=== PATIENT | female | born 1940 | race Caucasian/White ===

== ENCOUNTER → 2017-01-12 | Outpatient (CLI) | payer MEDICARE, OTHER | LOC: OD 11:20 | PROVIDERS: ATTEND Preventive Medicine Undersea and Hyperbaric Medicine | DX: L97.513 Non-pressure chronic ulcer of other part of right foot with necrosis of muscle (principal) ==

== ENCOUNTER 2017-01-26 11:01 | Emergency (ER) | payer MEDICARE, OTHER ==
[2017-01-26] MEDS ORDERED: ACETAMINOPHEN 325 MG TABLET PO ONE (11:32)
[2017-01-26] MEDS ORDERED: ONDANSETRON 4 MG TAB.RAPDIS PO ONE (11:32)
--- NOTE | 2017-01-26 11:35 | ER Document Report ---
ED Medical Screen (RME) - General Stated Complaint: DIZZY, WOUND ON FOOT Mode of Arrival: Wheelchair Information source: Patient Notes: Patient complains of dizziness that started today. Patient is currently being treated for diabetic foot ulcer to right foot. Patient does report nausea and vomiting. hx: Diabetes I have greeted and performed a rapid initial assessment of this patient. A comprehensive ED assessment and evaluation of the patient, analysis of test results and completion of the medical decision making process will be conducted by additional ED providers. TRAVEL OUTSIDE OF THE [place] IN LAST 30 DAYS: No - Related Data Allergies/Adverse Reactions: No Known Allergies Allergy (Unverified 01/26/17 11:30) Physical Exam - Vital signs Vitals: Temp Pulse Resp BP Pulse Ox 100.9 F H 121 H 16 144/59 H 96 01/26/17 11:16 01/26/17 11:16 01/26/17 11:16 01/26/17 11:16 01/26/17 11:16 - Cardiovascular Rhythm: Regular, Tachycardia Heart sounds: S1 appreciated, S2 appreciated Course - Re-evaluation Re-evalutation: 01/26/17 11:34 Patient insistent that no blood will be drawn and no IV access will be placed. Discussed risks with patient, patient advised that there is a concern that she is septic and that this could be potentially life-threatening condition if we do not quickly and treat her appropriately. Patient insistent that no blood will be drawn and that no IV will be placed. Patient spouse with patient with missing the entire encounter and states that patient does not want any needles and that his given her complications with managing her diabetes as well. - Vital Signs Vital signs: Temp Pulse Resp BP Pulse Ox 100.9 F H 121 H 16 144/59 H 96 01/26/17 11:16 01/26/17 11:16 01/26/17 11:16 01/26/17 11:16 01/26/17 11:16
--- NOTE | 2017-01-26 12:39 | ER Document Report ---
ED General - General Chief Complaint: Puncture Wound to Foot Stated Complaint: DIZZY, WOUND ON FOOT Mode of Arrival: Wheelchair Notes: The patient is a 76-year-old female, past medical history 2 months of right foot wound (followed by Wound Care), presents from the wound care center after she was tachycardic and febrile. Patient also had an episode of vomiting, but does not feel nauseous at this time. She was having body aches over the past few days. She is adamantly refusing any blood or IV at this time. She denies chest pain, shortness of breath, cough, abdominal pain, dysuria, increased drainage from her foot wound or rash. TRAVEL OUTSIDE OF THE [place] IN LAST 30 DAYS: No - Related Data Allergies/Adverse Reactions: No Known Allergies Allergy (Unverified 01/26/17 11:30) Past Medical History - General Information source: Patient - Social History Smoking Status: Never Smoker Chew tobacco use (# tins/day): No Frequency of alcohol use: None Drug Abuse: None Family History: Reviewed & Not Pertinent Patient has suicidal ideation: No Patient has homicidal ideation: No Renal/ Medical History: Denies: Hx Peritoneal Dialysis Review of Systems - Review of Systems Notes: REVIEW OF SYSTEMS: CONSTITUTIONAL: +fevers, -chills EENT: -eye pain, -difficulty swallowing, -nasal congestion CARDIOVASCULAR:-chest pain, -syncope. RESPIRATORY: -cough, -SOB GASTROINTESTINAL: -abdominal pain, - nausea, +vomiting, -diarrhea GENITOURINARY: -dysuria, -hematuria MUSCULOSKELETAL: -back pain, -neck pain SKIN: +right foot wound, -rash HEMATOLOGIC: -easy bruising or bleeding. LYMPHATIC: -swollen, enlarged glands. NEUROLOGICAL: -altered mental status or loss of consciousness, -headache, - neurologic symptoms PSYCHIATRIC: -anxiety, -depression. ALL OTHER SYSTEMS REVIEWED AND NEGATIVE. Physical Exam - Vital signs Vitals: Temp Pulse Resp BP Pulse Ox 100.9 F H 121 H 16 144/59 H 96 01/26/17 11:16 01/26/17 11:16 01/26/17 11:16 01/26/17 11:16 01/26/17 11:16 - Notes Notes: PHYSICAL EXAMINATION: GENERAL: Well-appearing, well-nourished and in no acute distress. HEAD: Atraumatic, normocephalic. EYES: Pupils equal round and reactive to light, extraocular movements intact, sclera anicteric, conjunctiva are normal. ENT: nares patent, oropharynx clear without exudates. Moist mucous membranes. NECK: Normal range of motion, supple without lymphadenopathy LUNGS: Breath sounds clear to auscultation bilaterally and equal. No wheezes rales or rhonchi. HEART: Tachycardic, regular rhythm ABDOMEN: Soft, nontender, normoactive bowel sounds. No guarding, no rebound. No masses appreciated. EXTREMITIES: Normal range of motion, no pitting or edema. No cyanosis. NEUROLOGICAL: Cranial nerves grossly intact. Normal speech, normal gait. Normal sensory, motor, and reflex exams. PSYCH: Normal mood, normal affect. SKIN: 2 cm wound at the plantar surface of her right foot without drainage or surrounding erythema Course - Re-evaluation Re-evalutation: Patient is adamantly refusing IV or blood draws at this time. She is AAO3 and competent to make her own decisions. Spoke to her about my concern for sepsis and that if she does not receive IV fluids, Abx or blood, she may have worsening sepsis, disability and even . She is able to verbalize these risks back to me and she still does not want an IV or blood draws. Patient no longer feeling nauseous and abdomen is completely nontender. She is drinking 60 ounces of water in the emergency room. She said she will provide a urine sample and chest x-ray. 01/26/17 15:34 Pt says she feels much better. Urine and chest x-ray did not show any signs of infection. She said that her foot wound looks better than it ever has in the past. Her fever may be from a viral infection, but since she is not allowing blood draws, there is no way of telling if this or something more serious. Repeat abdominal exam is completely nontender. Will have patient leave AMA and have her follow-up with her primary care physician tomorrow. See AMA form for more information. Given strict return precautions and she understands. - Vital Signs Vital signs: Temp Pulse Resp BP Pulse Ox 97.4 F 90 16 113/50 L 97 01/26/17 15:17 01/26/17 15:17 01/26/17 15:17 01/26/17 15:17 03/23/17 15:17 - Laboratory Laboratory results interpreted by me: 01/26/17 14:27 Urine Protein 30 H Urine Glucose (UA) >=500 H Urine Ketones TRACE H Ur Leukocyte Esterase SMALL H - Diagnostic Test Radiology reviewed: Image reviewed, Reports reviewed Radiology results interpreted by me: CXR: NAD - EKG Interpretation by Me EKG shows normal: Sinus rhythm, [place], Intervals, QRS Complexes, ST-T Waves [place]/QRS: LAHB/LAFB Discharge - Discharge Clinical Impression: Nausea Fever Qualifiers: Fever type: unspecified Qualified Code(s): R50.9 - Fever, unspecified Condition: Stable Disposition: AGAINST MEDICAL ADVICE Additional Instructions: Return immediately to the emergency room if you notice any worsening symptoms or if you want further evaluation. Follow up with your primary care physician tomorrow. FEVER: Fever is the body's reaction to infection. Fever can also occur with illnesses that create fever-producing substances in the body. By itself, fever is not harmful. It helps the body fight invading germs. We are more concerned with: (1) What's causing the fever? (2) How can we keep you more comfortable until the fever goes away? Early in an illness, symptoms are often so vague that a diagnosis can't be made. If the doctor hasn't identified a clear cause for your fever, you will probably develop new symptoms within the next two days. Contact the doctor if you develop severe worsening headache, rash, chest pain, cough with yellow or green sputum, difficulty breathing, abdominal pain, or other new symptoms. There is no reason to treat a fever if you're comfortable. If the fever is causing aches, headache, and fatigue, you can treat it with ibuprofen (Advil , Nuprin, etc) or acetaminophen (Tylenol). Follow the directions on the bottle. Get plenty of liquids (three quarts per day). Rest. Physical work or sports will raise the temperature higher and make you feel much worse. Dress lightly. If you're chilling, this means the temperature is trying to go higher. Take ibuprofen or acetaminophen. When you feel sweaty and "feverish" the temperature is coming down. If the fever doesn't go away within two days or if you become more ill, call the doctor or return at once for re-examination. NORMAL EXAM AND WORKUP: At this time, with the exception of fever, your examination and workup show no significant abnormality. No significant abnormal physical findings were noted. All laboratory, EKG, and imaging (x-ray, CT scans, ultrasound) studies that were ordered show no significant abnormality. Although your examination and all studies that were ordered showed no significant abnormal finding, there are no examinations and no studies that are 100% accurate. There is always the possibility that some abnormality could exist and not be detected with physical examination or within the limits and capabilities of laboratory and other studies. You should return or follow up as you were instructed on your visit today for further evaluation if your symptoms do not resolve. VIRAL SYNDROME: The physician has diagnosed a likely viral infection. Viruses not only cause "colds," but can cause many different symptoms including generalized aching, fever, headache, cough, diarrhea, nausea, vomiting, and fatigue. The treatment, for the most part, is simply relief of symptoms. This means that antibiotics are usually not given. Rest, fluids, pain medications and, occasionally, medication for the specific symptoms that are most bothersome will be prescribed. Use good handwashing to avoid passing the virus to others. Shared toys should be cleaned with disinfectant. Clean the toilets, sinks, and counter surfaces in bathrooms. Launder clothing in hot water. Contact the physician if you develop any new or unusual symptoms such as severe headache, stiff neck, high fever, chest pain, productive cough, or shortness of breath. You should be rechecked if you don't see marked improvement within seven to 10 days. USE OF ACETAMINOPHEN (Tylenol): Acetaminophen may be taken for pain relief or fever control. It's much safer than aspirin, offering a wider range of "safe" dosages. It is safe during . Some brand names are Tylenol, Panadol, Datril, Anacin 3, Tempra, and Liquiprin. Acetaminophen can be repeated every four hours. The following are maximum recommended dosages: WEIGHT Dose Drops Elixir Chewable( 80mg) (LBS.) drprs=droppers tsp=teaspoon 6 40 mg 0.4 ml (1/2) 6-11 80 mg 0.8 ml (full) tsp 1 tab 12-16 120 mg 1 1/2 drprs 3/4 tsp 1 1/2 tabs 17-23 160 mg 2 drprs 1 tsp 2 tabs 24-30 240 mg 3 drprs 1 1/2 tsp 3 tabs 30-35 320 mg 2 tsp 4 tabs 36-41 360 mg 2 1/4 tsp 4 1/2 tabs 42-47 400 mg 2 1/2 tsp 5 tabs 48-53 480 mg 3 tsp 6 tabs 54-59 520 mg 3 1/4 tsp 6 1/2 tabs 60-64 560 mg 3 1/2 tsp 7 tabs 65-70 600 mg 3 3/4 tsp 7 1/2 tabs 71-76 640 mg 4 tsp 8 tabs 77-82 720 mg 4 1/2 tsp 9 tabs 83-88 800 mg 5 tsp 10 tabs >89 pounds or adults 650 mg to 900 mg Acetaminophen can be repeated every four hours. Maximum dose not to exceed 4000 mg a day. These maximum recommended dosages are slightly higher than the dosages written on the product container, but these dosages are very safe and below the toxic dosage for acetaminophen. FOLLOW-UP CARE: If you have been referred to a physician for follow-up care, call the physician s office for an appointment as you were instructed or within the next two days. If you experience worsening or a significant change in your symptoms, notify the physician immediately or return to the Emergency Department at any time for re-evaluation.
--- NOTE | 2017-01-26 13:16 | EKG REPORT ---
SEVERITY:- ABNORMAL ECG - SINUS TACHYCARDIA LAD, CONSIDER LEFT ANTERIOR FASCICULAR BLOCK BORDERLINE R WAVE PROGRESSION, ANTERIOR LEADS, CONSIDER OLD ANT. [place] : Confirmed by: Rashid Lopez MD 26-Jan-2017 13:15:16
[2017-01-26 14:46] LABS: APPEARANCE,URINE SLIGHTLY-CLOUDY; BILIRUBIN,URINE NEGATIVE (NEGATIVE); GLUCOSE, URINE >=500 mg/dL (NEGATIVE); KETONES,URINE TRACE mg/dL (NEGATIVE); LEUKOCYTE ESTERASE,URINE SMALL (NEGATIVE); NITRITE,URINE NEGATIVE (NEGATIVE); PROTEIN,URINE 30 mg/dL (NEGATIVE); URINE SPECIFIC GRAVITY 1.027; UROBILINOGEN,URINE NEGATIVE mg/dL (<2.0)
[2017-01-26 15:19] VITALS: BP 113/50
== END 2017-01-26 16:20 | disposition left against medical advice (07) ==
LOC: ER 11:01
DX: R11.0 Nausea (principal); R50.9 Fever, unspecified; R00.0 Tachycardia, unspecified; M79.1 Myalgia; S91.301D Unspecified open wound, right foot, subsequent encounter; X58.XXXD Exposure to other specified factors, subsequent encounter
CPT/HCPCS: 99284; 93005; 87086; 87088; 81001; 71020; 73630; 93010; A9270 ×2; S0119

== ENCOUNTER 2017-01-31 16:15 | Inpatient (IN) | payer MEDICARE, OTHER ==
--- NOTE | 2017-01-31 17:15 | ER Document Report ---
ED Medical Screen (RME) - General Chief Complaint: Foot Pain Stated Complaint: FOOT PAIN Time seen by provider: 17:13 Mode of Arrival: Wheelchair Information source: Patient Notes: 76-year-old female presents to ED for infections to the right plantar surface of the foot. She was sent over by wound clinic due to severe infections to this wound. She stated patient will probably need IV antibiotics. I have greeted and performed a rapid initial assessment of this patient. A comprehensive ED assessment and evaluation of the patient, analysis of test results and completion of medical decision making process will be conducted by an additional ED providers. TRAVEL OUTSIDE OF THE [place] IN LAST 30 DAYS: No - Related Data Allergies/Adverse Reactions: No Known Allergies Allergy (Verified 01/31/17 17:10) Past Medical History - Social History Chew tobacco use (# tins/day): No Frequency of alcohol use: None Drug Abuse: None Endocrine Medical History: Reports: Hx Diabetes Mellitus Type 2 Renal/ Medical History: Denies: Hx Peritoneal Dialysis Past Surgical History: Reports: Hx Gynecologic Surgery - d&c, Hx Orthopedic Surgery - carpel tunnel bilateral, Hx Tonsillectomy - Immunizations Hx Diphtheria, Pertussis, Tetanus Vaccination: No Physical Exam - Vital signs Vitals: Temp Pulse Resp BP Pulse Ox 97.4 F 84 20 106/46 L 98 01/31/17 17:02 01/31/17 17:02 01/31/17 17:02 01/31/17 17:02 01/31/17 17:02 Course - Vital Signs Vital signs: Temp Pulse Resp BP Pulse Ox 97.4 F 84 20 106/46 L 98 01/31/17 17:02 01/31/17 17:02 01/31/17 17:02 01/31/17 17:02 01/31/17 17:02
[2017-01-31 18:10] LABS: HEMATOCRIT 40.5 % (36.0-47.0); HEMOGLOBIN 13.6 g/dL (12.0-15.5); HGB HCT DIFFERENCE 0.3; MEAN CORPUSCULAR HGB CONC 33.6 g/dL (32.0-36.0); MEAN CORPUSCULAR VOLUME 80 fl (80-97); RED BLOOD COUNT 5.04 10^6/uL (3.72-5.28); RED CELL DISTRIBUTION WIDTH 15.6 % (11.5-14.0); WHITE BLOOD COUNT 21.4 10^3/uL (4.0-10.5)
[2017-01-31 18:26] LABS: ALANINE AMINOTRANSFERASE 30 U/L (9-52); ALBUMIN 3.5 g/dL (3.5-5.0); ALKALINE PHOSPHATASE 246 U/L (38-126); ASPARTATE AMINO TRANSFERASE 27 U/L (14-36); BILIRUBIN,DIRECT 0.8 mg/dL (0.0-0.4); BILIRUBIN,TOTAL 1.5 mg/dL (0.2-1.3); BLOOD UREA NITROGEN 37 mg/dL (7-20); CALCIUM 9.6 mg/dL (8.4-10.2); CARBON DIOXIDE 19 mmol/L (22-30); CHLORIDE 92 mmol/L (98-107); CREATININE RESULT 0.81 mg/dL (0.52-1.25); GLUCOSE 180 mg/dL (75-110); POTASSIUM 5.2 mmol/L (3.6-5.0); SODIUM 130.9 mmol/L (137-145); TOTAL PROTEIN 6.3 g/dL (6.3-8.2)
[2017-01-31 18:27] LABS: APPEARANCE,URINE SLIGHTLY-CLOUDY; BILIRUBIN,URINE NEGATIVE (NEGATIVE); GLUCOSE, URINE >=500 mg/dL (NEGATIVE); KETONES,URINE 20 mg/dL (NEGATIVE); LEUKOCYTE ESTERASE,URINE MODERATE (NEGATIVE); NITRITE,URINE NEGATIVE (NEGATIVE); PROTEIN,URINE NEGATIVE (NEGATIVE); UROBILINOGEN,URINE NEGATIVE mg/dL (<2.0)
[2017-01-31 18:27] LABS: ANION GAP 20 (5-19)
[2017-01-31 18:33] LABS: BASOPHILS % (MANUAL) 1 % (0-2); EOSINOPHILS % (MANUAL) 0 % (0-6); LYMPHOCYTES % (MANUAL) 13 % (13-45); TOTAL CELLS COUNTED 100
[2017-01-31 18:35] LABS: ACANTHOCYTES SLIGHT; ANISOCYTOSIS SLIGHT; OVALOCYTES SLIGHT; POIKILOCYTOSIS SLIGHT; POLYCHROMASIA 1+; TEAR DROP CELLS SLIGHT; TOXIC GRANULATION 2+; TOXIC VACUOLATION PRESENT
[2017-01-31 18:36] LABS: PLATELET CLUMPS PRESENT
[2017-01-31] MEDS ORDERED: DIAZEPAM 2 MG TABLET PO ONE ×2 (22:42→23:49)
[2017-01-31] MEDS ORDERED: PIPERACILLIN/TAZOBACTAM 3.375 GM VIAL IV ONE (22:43)
--- NOTE | 2017-01-31 22:53 | ER Document Report ---
ED Extremity Problem, Lower - General Chief Complaint: Foot Pain Stated Complaint: FOOT PAIN Time seen by provider: 22:48 Mode of Arrival: Wheelchair TRAVEL OUTSIDE OF THE [place] IN LAST 30 DAYS: No - HPI Patient complains to provider of: Swelling Location: Foot Occurred: Other - 3 days Onset/Duration: Gradual Quality of pain: Pressure Recent injury: No Exacerbated by: Movement Notes: Patient is a 76-year-old female with a history of diabetes as well as a diabetic ulcer on the right foot, presents to the emergency room complaining of worsening swelling and infection to the right foot over the past 3-4 days, he got an ulceration on the plantar surface the past 6 months, she in seen at the wound care clinic for this and followed, she does note over the past few days her infection has gotten significantly worse, due to diabetic neuropathy she has decreased sensation in the foot and therefore is denying any pain, no fevers , denies injury - Related Data Allergies/Adverse Reactions: clindamycin Allergy (Verified 02/01/17 00:42) codeine Allergy (Verified 02/01/17 00:42) Past Medical History - General Information source: Patient - Social History Smoking Status: Unknown if Ever Smoked Chew tobacco use (# tins/day): No Frequency of alcohol use: None Drug Abuse: None Family History: Reviewed & Not Pertinent Patient has suicidal ideation: No Patient has homicidal ideation: No Endocrine Medical History: Reports: Hx Diabetes Mellitus Type 2 Renal/ Medical History: Denies: Hx Peritoneal Dialysis Past Surgical History: Reports: Hx Gynecologic Surgery - d&c, Hx Orthopedic Surgery - carpel tunnel bilateral, Hx Tonsillectomy - Immunizations Hx Diphtheria, Pertussis, Tetanus Vaccination: No Review of Systems - Review of Systems Constitutional: No symptoms reported EENT: No symptoms reported Cardiovascular: No symptoms reported Respiratory: No symptoms reported Gastrointestinal: No symptoms reported Genitourinary: No symptoms reported Female Genitourinary: No symptoms reported Musculoskeletal: No symptoms reported Skin: See HPI Hematologic/Lymphatic: No symptoms reported Neurological/Psychological: No symptoms reported -: Yes All other systems reviewed and negative Physical Exam - Vital signs Vitals: Temp Pulse Resp BP Pulse Ox 97.4 F 84 20 106/46 L 98 01/31/17 17:02 01/31/17 17:02 01/31/17 17:02 01/31/17 17:02 01/31/17 17:02 Interpretation: Normal - General General appearance: Appears well, Alert - HEENT Head: Normocephalic, Atraumatic Eyes: Normal Pupils: PERRL - Respiratory Respiratory status: No respiratory distress Chest status: Nontender Breath sounds: Normal Chest palpation: Normal - Cardiovascular Rhythm: Regular Heart sounds: Normal auscultation Murmur: No - Abdominal Inspection: Normal Distension: No distension Bowel sounds: Normal Tenderness: Nontender Organomegaly: No organomegaly - Back Back: Normal, Nontender - Extremities General upper extremity: Normal inspection, Nontender, Normal color, Normal ROM , Normal temperature General lower extremity: No: Justin's sign Foot: Other - Right foot with significant erythema and swelling, with a 2.5 cm ulceration over the distal first metatarsal on the plantar surface, blistering to the dorsal surface over the first phalanx, with necrosis and gangrenous odor - Neurological Neuro grossly intact: Yes Cognition: Normal Orientation: AAOx4 Jame Coma Scale Eye Opening: Spontaneous [place] Coma Scale Verbal: Oriented [place] Coma Scale Motor: Obeys Commands [place] Coma Scale Total: 15 Speech: Normal Motor strength normal: LUE, RUE, LLE, RLE Sensory: Normal - Psychological Associated symptoms: Normal affect, Normal mood - Skin Skin Temperature: Warm Skin Moisture: Dry Skin Color: Normal Course - Re-evaluation Re-evalutation: 01/31/17 22:53 Patient was discussed with the on-call surgeon, Dr. Baker, who requests that patient be started on antibiotics, have a CT scan performed, and be admitted to medical service, he will come to the emergency room to see patient later tonight 02/01/17 00:41 Surgeon was consulted, CT scan findings were reported as well as concerned that patient likely needs surgical intervention this evening, given her leukocytosis , the findings of gas on CT scan, Dr. Mosher, hospitalist was also in to see the patient and agrees that patient needs urgent surgical evaluation, Dr. Baker states he will be in to see the patient - Vital Signs Vital signs: Temp Pulse Resp BP Pulse Ox 97.4 F 84 20 106/46 L 98 01/31/17 17:02 01/31/17 17:02 01/31/17 17:02 01/31/17 17:02 01/31/17 17:02 - Laboratory Result Diagrams: 01/31/17 17:50 01/31/17 17:50 Laboratory results interpreted by me: 01/31/17 01/31/17 01/31/17 17:50 17:50 18:05 WBC 21.4 H RDW 15.6 H Abs Neuts (Manual) 16.7 H Abs Monocytes (Manual) 1.5 H Sodium 130.9 L Potassium 5.2 H Chloride 92 L Carbon Dioxide 19 L Anion Gap 20 H BUN 37 H Glucose 180 H Total Bilirubin 1.5 H Direct Bilirubin 0.8 H Alkaline Phosphatase 246 H Urine Glucose (UA) >=500 H Urine Ketones 20 H Urine Blood MODERATE H Ur Leukocyte Esterase MODERATE H - Diagnostic Test Radiology reviewed: Image reviewed, Reports reviewed - Consults Dr. Baker Time consulted: 22:54 Reason for consultation: 01/31/17 22:54 Gangrenous foot infection Consulted provider: will come to ER Discharge - Discharge Clinical Impression: Diabetic infection of right foot, Gas gangrene, SIRS (systemic inflammatory response syndrome) Condition: Serious Disposition: ADMITTED INPATIENT Admitting Provider: Surgicalist Unit Admitted: Surgical Floor Referrals: KEYON MATOS MD [Primary Care Provider] - Follow up as needed
[2017-02-01] MEDS ORDERED: VANCOMYCIN HCL INJ 1000 MG VIAL IV ONE (00:40)
[2017-02-01] MEDS ORDERED: NORMAL SALINE 1000 ML 2,000 ML IV PRN (01:08)
[2017-02-01] MEDS ORDERED: HYDRALAZINE HCL INJ/PF 20 MG/1 ML SDV IV PRN (01:20)
[2017-02-01] MEDS ORDERED: ACETAMINOPHEN 325 MG TABLET PO PRN (01:21)
[2017-02-01] MEDS ORDERED: INSULIN LISPRO 100 UNIT/ML 3 ML VIAL SUBCUT PRN (01:21)
[2017-02-01] MEDS ORDERED: GLUCAGON,HUMAN RECOMB 1 MG INJ IM PRN (01:21)
[2017-02-01] MEDS ORDERED: KETOROLAC TROMETHAMINE INJ/PF 30 MG/1 ML SDV IV PRN (01:21)
[2017-02-01] MEDS ORDERED: DEXTROSE 50%-WATER 25 GM/50 ML DISP.SYRIN IV PRN ×2 (01:21)
[2017-02-01] MEDS ORDERED: DEXTROSE 40% GEL 15 GM TUBE PO PRN ×2 (01:21)
[2017-02-01] MEDS ORDERED: LIDOCAINE 2% INJ-PF (20 MG/ML) 10 ML AMPUL ONE ×2 (01:25→17:23)
[2017-02-01] MEDS ORDERED: FENTANYL CITRATE INJ/PF 100 MCG/2 ML AMPUL ONE (01:26)
[2017-02-01] MEDS ORDERED: MIDAZOLAM 2 MG/2 ML INJ ONE ×2 (01:26→17:23)
[2017-02-01] MEDS ORDERED: PROPOFOL INJ 200 MG/20 ML VIAL IV ONE ×2 (01:26→17:24)
[2017-02-01] MEDS ORDERED: NORMAL SALINE 1000 ML 1,000 ML IV SCH (01:30)
[2017-02-01] MEDS ORDERED: ROPIVACAINE HCL 0.5% INJ/PF (5 MG/1 ML) 30 ML SDV ONE (02:09)
[2017-02-01] MEDS ORDERED: LIDOCAINE 2%/EPINEPHRINE INJ 20 ML VIAL ONE (02:10)
[2017-02-01] MEDS ORDERED: LIDOCAINE 2% INJ (20 MG/ML) 20 ML MDV ONE (02:10)
[2017-02-01] MEDS ORDERED: SILVER SULFADIAZINE 1% CREAM 25 GM ONE (02:16)
[2017-02-01] MEDS ORDERED: LACTULOSE SYRUP 20 GM/30 ML UDCUP PO ONE (02:30)
[2017-02-01] MEDS ORDERED: ACETAMINOPHEN 100 ML IV ONE (02:32)
[2017-02-01] MEDS ORDERED: INSULIN REG, HUMAN 100 UNIT/ML 3 ML VIAL (PYX) ONE (03:04)
--- NOTE | 2017-02-01 03:44 | Operative Report ---
Operative Report DATE OF SURGERY: 02/01/17 PREOPERATIVE DIAGNOSIS: Gas gangrene right forefoot POSTOPERATIVE DIAGNOSIS: same OPERATION: Full thickness sharp debridment to bone of right forefoot dorsal skin 10 cm x 15 cm SURGEON: JEWEL ORTIZ ANESTHESIA: GA TISSUE REMOVED OR ALTERED: right forefoot dorsal skin 10 cm x 15 cm COMPLICATIONS: none ESTIMATED BLOOD LOSS: < 10 mL INTRAOPERATIVE FINDINGS: necrotic skin right forefoot dorsal skin with subcutaneous absess between first and second MTP jonts PROCEDURE: Full thickness sharp debridment to bone of right forefoot dorsal skin 10 cm x 15 cm (see dictation)
--- NOTE | 2017-02-01 03:48 | HISTORY AND PHYSICAL E ---
History and Physical NAME: RACHAEL BARRY : 1940 AGE: 76Y ADMITTED: 02/01/2017 ROOM: ED21 CHIEF COMPLAINT: Right forefoot odor and drainage. HISTORY: This is a 76-year-old female with a history of insulin-dependent diabetes mellitus who has a 6-month history of ulcer of the right forefoot. She was seen by a local electrotyper apprentice. During the past month, the forefoot ulcer has become worse until 3 days ago when it has been developing odor and more redness. The patient went to the Wound Clinic this afternoon and was recommended to come to the Emergency Room. PAST MEDICAL HISTORY: Significant for hypertension and insulin-dependent diabetes mellitus. FAMILY HISTORY: Significant for diabetes. ALLERGIES: CLINDAMYCIN. SOCIAL HISTORY: The patient denies abuse of alcohol, drugs, or tobacco. MEDICATIONS: The patient uses insulin and an unspecified antihypertensive medication. REVIEW OF SYSTEMS: A 12-point review of systems was performed and is significant for hypertension and diabetes. REVIEW OF LABORATORIES: White blood cell count 21, hemoglobin and hematocrit 13 and 40, platelet count of 267,000. Electrolytes show sodium 130, potassium 5.2. BUN and creatinine 37.8. Urinalysis shows blood and leukocyte esterase. CT scan of the right foot reveals gas throughout the dorsum of the forefoot extending to the distal leg. PHYSICAL EXAMINATION: VITAL SIGNS: The patient's vital signs are stable. She is afebrile. Temperature is 97.4, pulse 84, blood pressure 106/46, respirations 20. HEENT: Second through twelve cranial nerves are normal. NECK: Supple without masses. CHEST: Symmetric bilaterally. LUNGS: Clear to auscultation bilaterally. HEART: Regular rhythm and rate. ABDOMEN: Soft, nondistended, nontender. EXTREMITIES: Right foot, presence of cellulitis in the forefoot with necrotic skin and odor. ASSESSMENT: 1. Right forefoot skin necrosis with gas in the dorsal aspect of the forefoot and extending up to the anterior aspect of the right leg. 2. Insulin-dependent diabetes mellitus. 3. Poor compliance. PLAN: 1. We will take the patient to surgery urgently tonight to undergo debridement of the right forefoot skin only. The patient is not agreeable to undergo an amputation at this time 2. The final surgical procedure would be deferred to a later time. DICTATING PHYSICIAN: JEWEL ORTIZ M.D. [id number] PHY#: [id number] ID: [id number] JOB#: [id number] ACCT: [id number] cc: > MAITED
[2017-02-01] MEDS ORDERED: MORPHINE SULFATE 10 MG/ML INJ IV PRN ×2 (03:51→18:03)
[2017-02-01] MEDS ORDERED: NORMAL SALINE 500 ML IV PRN (03:51)
[2017-02-01] MEDS ORDERED: ONDANSETRON HCL INJ/PF 4 MG/2 ML SDV IV PRN ×2 (03:51→18:03)
[2017-02-01] MEDS ORDERED: INSULIN REG, HUMAN 100 UNIT/ML 3 ML VIAL (PYX) SUBCUT ONE (04:00)
[2017-02-01] MEDS ORDERED: PIPERACILLIN/TAZOBACTAM 3.375 GM VIAL IV PRN (04:08)
[2017-02-01] MEDS ORDERED: SODIUM POLYSTYRENE SULFONATE 15 GM/60 ML PR STA (04:26)
--- NOTE | 2017-02-01 04:38 | PDOC CONSULTATION ---
Consultation Consult Date: 01/31/17 Attending physician:: JEWEL ORTIZ Consult reason:: Diabetes History of Present Illness Admission Date/PCP: 02/01/17 03:44 KEYON MATOS MD Patient complains of: Large right diabetic foot ulcer with extensive cellulitis History of Present Illness: RACHAEL BARRY is a 76 year old female with a history of hypertension and diabetes who refuses insulin and recurrent diabetic foot ulcers who is had approximately 10 days of worsening right foot erythema and malodorous discharge , patient had completed an antibiotic course 3 weeks ago and has had follow-up with the wound care clinic today and was referred to the emergency room for evaluation. She has deep ulceration to the plantar surface at the a.m. TP joint with extensive subcutaneous gas. And is referred to the surgeon for admission. Patient refuses Accu-Cheks and insulin. Patient is markedly anxious for IV insertion requiring 12 mg of Valium clearly complicating her chronic condition and prognosis. Past Medical History Cardiac Medical History: Reports: Hypertension Endocrine Medical History: Reports: Diabetes Mellitus Type 1 Past Surgical History Past Surgical History: Reports: Orthopedic Surgery - carpel tunnel bilateral, Tonsillectomy Social History Information Source: Patient, Parent Smoking Status: Unknown if Ever Smoked Drugs: None Hx Prescription Drug Abuse: No - Advance Directive Resuscitation Status: Full Code Family History Family History: Hypertension Parental Family History Reviewed: Yes Children Family History Reviewed: Yes Sibling(s) Family History Reviewed.: Yes Medication/Allergy Allergies/Adverse Reactions: clindamycin Allergy (Verified 02/01/17 00:42) codeine Allergy (Verified 02/01/17 00:42) Review of Systems Constitutional: PRESENT: chills, fatigue. ABSENT: fever(s), headache(s), weight gain, weight loss Eyes: ABSENT: visual disturbances Ears: ABSENT: hearing changes Cardiovascular: ABSENT: chest pain, dyspnea on exertion, edema, orthropnea, palpitations Respiratory: ABSENT: cough, hemoptysis Gastrointestinal: ABSENT: abdominal pain, constipation, diarrhea, hematemesis, hematochezia, nausea, vomiting Genitourinary: ABSENT: dysuria, hematuria Musculoskeletal: ABSENT: joint swelling Integumentary: ABSENT: rash, wounds Neurological: ABSENT: abnormal gait, abnormal speech, confusion, dizziness, focal weakness, syncope Psychiatric: ABSENT: anxiety, depression, homidical ideation, suicidal ideation Endocrine: ABSENT: cold intolerance, heat intolerance, polydipsia, polyuria Hematologic/Lymphatic: ABSENT: easy bleeding, easy bruising Physical Exam Vital Signs: Temp Pulse Resp BP Pulse Ox 98.3 F 77 20 101/46 L 95 02/01/17 04:07 02/01/17 04:07 02/01/17 04:07 02/01/17 04:07 02/01/17 04:07 Intake & Output 01/30/17 01/31/17 02/01/17 11:59 11:59 11:59 Intake Total 500 Balance 500 General appearance: PRESENT: mild distress Head exam: PRESENT: atraumatic, normocephalic Eye exam: PRESENT: conjunctiva pink, EOMI, PERRLA. ABSENT: scleral icterus Ear exam: PRESENT: normal external ear exam Mouth exam: PRESENT: moist, tongue midline Neck exam: ABSENT: carotid bruit, JVD, lymphadenopathy, thyromegaly Respiratory exam: PRESENT: clear to auscultation marianna. ABSENT: rales, rhonchi, wheezes Cardiovascular exam: PRESENT: RRR. ABSENT: diastolic murmur, rubs, systolic murmur Pulses: PRESENT: normal dorsalis pedis pul Vascular exam: PRESENT: normal capillary refill GI/Abdominal exam: PRESENT: normal bowel sounds, soft. ABSENT: distended, guarding, mass, organolmegaly, rebound, tenderness Rectal exam: PRESENT: deferred Extremities exam: PRESENT: calf tenderness, joint swelling, pedal edema, +1 edema, other - Per history of present illness Musculoskeletal exam: PRESENT: tenderness, other - Per history of present illness Neurological exam: PRESENT: alert, awake, oriented to person, oriented to place , oriented to time, oriented to situation, CN II-XII grossly intact. ABSENT: motor sensory deficit Psychiatric exam: PRESENT: anxious. ABSENT: appropriate affect, depressed Skin exam: PRESENT: erythema, warm, other - Per history of present illness. ABSENT: intact Results Impressions: Lower Extremity CT 01/31/17 22:49 IMPRESSION: Diffuse soft tissue edema and subcutaneous gas. Findings are consistent with infectious process. There is no CT evidence of osteomyelitis but further evaluation with 3 phase bone scanning or MRI is recommended. No drainable fluid collection is identified on this non contrasted study. Assessment & Plan - Diagnosis (1) Diabetes 1.5, managed as type 1 Is this a current diagnosis for this admission?: YesPlan: I will evaluate an A1c continue metformin and sliding scale Humalog coverage and attempt education (2) Hypertension Is this a current diagnosis for this admission?: YesPlan: ELENO inhibitor and when necessary hydralazine (3) Anxiety Is this a current diagnosis for this admission?: YesPlan: When necessary benzodiazepine (4) Diabetic infection of right foot Is this a current diagnosis for this admission?: YesPlan: Defer to surgery (5) Gas gangrene Is this a current diagnosis for this admission?: YesPlan: Defer to surgery (6) SIRS (systemic inflammatory response syndrome) Is this a current diagnosis for this admission?: YesPlan: Defer to surgery - Time Time Spent: 30 to 50 Minutes - Inpatient Certification Medical Necessity: Need Close Monitoring Due to Risk of Patient Decompensation
[2017-02-01] MEDS ORDERED: VANCOMYCIN HCL INJ 1000 MG VIAL IV SCH (04:45)
[2017-02-01] MEDS ORDERED: NORMAL SALINE 1000 ML 1,000 ML IV PRN ×2 (04:59→19:41)
[2017-02-01] MEDS ORDERED: DIAZEPAM 5 MG TABLET PO PRN (05:32)
[2017-02-01 05:52] LABS: ANION GAP 13 (5-19); BLOOD UREA NITROGEN 41 mg/dL (7-20); CALCIUM 9.1 mg/dL (8.4-10.2); CARBON DIOXIDE 19 mmol/L (22-30); CHLORIDE 99 mmol/L (98-107); CREATININE RESULT 0.71 mg/dL (0.52-1.25); GLUCOSE 221 mg/dL (75-110); SODIUM 131.4 mmol/L (137-145)
[2017-02-01] MEDS ORDERED: PIPERACILLIN SODIUM/TAZOBACTAM 3.375 GM in NORMAL SALINE 100 ML IV SCH (06:00)
[2017-02-01] MEDS ORDERED: LACTULOSE SYRUP 20 GM/30 ML UDCUP ONE (06:15)
[2017-02-01] MEDS ORDERED: PIPERACILLIN/TAZOBACTAM 3.375 GM VIAL IV ONE (06:16)
[2017-02-01 06:17] LABS: POTASSIUM 4.2 mmol/L (3.6-5.0)
[2017-02-01] MEDS ORDERED: METFORMIN HCL 500 MG TABLET PO SCH (08:00)
[2017-02-01] MEDS ORDERED: NORMAL SALINE 1000 ML 2,000 ML IV ONE (08:02)
[2017-02-01] MEDS ORDERED: SUCCINYLCHOLINE CHLORIDE INJ 200 MG/10 ML VIAL ONE ×2 (10:28→10:33)
[2017-02-01] MEDS ORDERED: LORAZEPAM INJ 2 MG/1 ML VIAL IV PRN (10:30)
[2017-02-01] MEDS: FAMOTIDINE INJ/PF 20 MG/2 ML SDV IV SCH ×2 (11:07→21:53)
[2017-02-01] MEDS: PIPERACILLIN SODIUM/TAZOBACTAM 4.5 GM in NORMAL SALINE 100 ML IV SCH ×2 (11:14→22:06)
--- NOTE | 2017-02-01 11:48 | PROGRESS NOTE E ---
Progress Note NAME: RACHAEL BARRY : 1940 AGE: 76Y DATE: 02/01/2017 ROOM: 431 The patient had underwent debridement of a right foot infection the night prior. SUBJECTIVE: The patient denies any significant pain in the foot. OBJECTIVE: The patient has open wound where she had debridement on the right foot plantar surface. The patient has copious amounts of purulent drainage from the wound. There is cellulitis to the ankle area. She does have a palpable posterior tibial pulse. DIAGNOSTIC DATA: Her white blood cell count evening prior was 21. She has refused any blood draws currently. Sodium of [address] scan of her foot prior to surgery showed soft tissue edema along with gas in the tissues up into the distal right lower leg. ASSESSMENT: SEVERE RIGHT FOOT DIABETIC INFECTION WITH PURULENT DRAINAGE AND GAS IN THE TISSUES. SHE HAD ONLY DEBRIDEMENT. With what is going on, she needs a minimum of an open TMA, possible open distal BKA. I explained that this allows the infection to clear with surgery and then needing to go back for closure. There is always the possibility that if she has only a TMA that she may have continued infection and need an open [id number] amputation. Other risks involved, including bleeding, infection, anesthesia risk, heart, lung problems, wound healing problems, acute and chronic pain, need for further amputation, et cetera. She accepts the risks and wishes to proceed with the procedure. PLAN: 1. Continue broad-spectrum IV antibiotics. 2. Right transmetatarsal amputation, possible below-knee amputation open. DICTATING PHYSICIAN: PENNY BELTRAN M.D. [id number] Y#: [id number] ID: [id number] JOB#: [id number] ACCT: [id number] cc: >
[2017-02-01] MEDS ORDERED: VANCOMYCIN HCL 1,000 MG in DEXTROSE 5%-WATER 250 ML IV SCH (14:00)
[2017-02-01] MEDS ORDERED: ONDANSETRON HCL INJ/PF 4 MG/2 ML SDV ONE (17:23)
[2017-02-01] MEDS ORDERED: HYDROMORPHONE HCL INJ/PF 2 MG/ML AMPULE ONE (17:23)
[2017-02-01] MEDS ORDERED: DIPHENHYDRAMINE HCL 50 MG/ML VIAL IV PRN (18:03)
[2017-02-01] MEDS ORDERED: MEPERIDINE HCL/PF INJ 25 MG/1 ML DISP.SYRIN IV PRN (18:03)
[2017-02-01] MEDS ORDERED: FENTANYL CITRATE INJ/PF 100 MCG/2 ML AMPUL IV PRN ×2 (18:03)
[2017-02-01] MEDS ORDERED: PROMETHAZINE HCL INJ 25 MG/1 ML VIAL IV PRN ×2 (18:03)
[2017-02-01] MEDS ORDERED: HYDROMORPHONE HCL 30 MG/60 ML RTUINJ IV PRN (19:29)
--- NOTE | 2017-02-01 20:33 | OPERATIVE REPORT E ---
Operative Report NAME: RACHAEL BARRY : 1940 AGE: 76Y DATE OF SURGERY: 02/01/2017 ROOM: 431 PREOPERATIVE DIAGNOSIS: Right foot infection with cellulitis and purulence. POSTOPERATIVE DIAGNOSIS: Right foot infection with cellulitis, necrosis, and purulence. OPERATION: Right below-knee guillotine amputation. SURGEON: PENNY BELTRAN M.D. ANESTHESIA: General. INDICATIONS FOR PROCEDURE: The patient is a 76-year-old female with diabetes with c/o pain in her right foot. She comes into the Emergency Room and was found to have a severe infection in her right foot. She wound only consented to having debridement of the infection undergoing the surgery the night before. Today, her wound was purulent with copious amount of drainage along with necrotic tissue. I have explained that we could try and salvage a TMA but more than likely she will need a guillotine right below-knee amputation. FINDINGS AT PROCEDURE: The patient had ascending purulence extending to the ankle. Therefore, an open guillotine right below-knee amputation was only reasonable option to proceed with. At the amputation, there was minimal infection being present with good blood supply to the leg at the amputation site. PROCEDURE: Informed consent was obtained. The patient was taken to the operating room and placed in supine position. General endotracheal anesthesia was administered. The patient's right leg was then prepped and draped in the usual sterile fashion. I had attempted a transmetatarsal amputation; however, there was purulent fluid extending along the dorsal with necrotic tissue up to the ankle. Therefore, a guillotine right below-knee amputation was decided upon. A circular incision was then made above the ankle in the skin using a scalpel. It was carried through the subcutaneous tissue to the fascia using electrocautery. The anterior tibial and posterior tibial arteries were identified, isolated, clamped proximally and distally, divided, and suture ligated using 2-0 Vicryl suture. The Achilles tendon was then divided along with the anterior compartment muscles. The tibial and fibular bones were then divided using an oscillating saw and the peroneal arteries suture ligated using 3-0 silk suture. The wound was irrigated. Hemostasis was obtained using electrocautery. A Betadine gauze was then applied along with a dry dressing and Ovidio wrap. The patient was then awakened, extubated, and taken from the operating room in stable condition. ESTIMATED BLOOD LOSS: 150 mL. COMPLICATIONS: None. CONDITION OF PATIENT AFTER PROCEDURE: Stable. SPECIMENS: Right below-knee amputation. DRAINS: None. CLASSIFICATION: Wound is dirty. DICTATING PHYSICIAN: PENNY BELTRAN M.D. [id number] PHY#: [id number] ID: [id number] JOB#: [id number] ACCT: [id number] cc:PENNY BELTRAN M.D. > [facility]
[2017-02-01] MEDS: VANCOMYCIN HCL 1,000 MG in DEXTROSE 5%-WATER 250 ML IV SCH (21:53)
[2017-02-01] MEDS: NORMAL SALINE 10 ML SDV (SCHEDULED) IV SCH (22:03)
[2017-02-02] MEDS: PIPERACILLIN SODIUM/TAZOBACTAM 4.5 GM in NORMAL SALINE 100 ML IV SCH ×4 (00:15→18:01)
[2017-02-02 06:27] LABS: HEMATOCRIT 32.7 % (36.0-47.0); HGB HCT DIFFERENCE 0.3; MEAN CORPUSCULAR HGB CONC 33.6 g/dL (32.0-36.0); MEAN CORPUSCULAR VOLUME 80 fl (80-97); RED BLOOD COUNT 4.07 10^6/uL (3.72-5.28); RED CELL DISTRIBUTION WIDTH 16.1 % (11.5-14.0); WHITE BLOOD COUNT 12.1 10^3/uL (4.0-10.5)
[2017-02-02 06:41] LABS: ANION GAP 12 (5-19); BLOOD UREA NITROGEN 23 mg/dL (7-20); CALCIUM 8.7 mg/dL (8.4-10.2); CARBON DIOXIDE 22 mmol/L (22-30); CHLORIDE 100 mmol/L (98-107); CREATININE RESULT 0.49 mg/dL (0.52-1.25); GLUCOSE 109 mg/dL (75-110); POTASSIUM 4.3 mmol/L (3.6-5.0); SODIUM 134.3 mmol/L (137-145)
--- NOTE | 2017-02-02 09:31 | PDOC PROGRESS REPORT ---
Subjective Progress Note for:: 02/02/17 Subjective:: Tearful about the amputation. Patient nontoxic. Physical Exam Vital Signs: Temp Pulse Resp BP Pulse Ox 97.5 F 74 18 135/57 H 98 02/02/17 02:55 02/02/17 07:00 02/02/17 02:55 02/02/17 02:55 02/02/17 04:00 Pulse Oximeter Continuous Start: 02/01/17 21: 08 Freq: RTQ4 Status: Active Document 02/02/17 04:00 SFL (Rec: 02/02/17 06:00 SFL [email or web address]) Pulse Oximetry Assessment Oxygen Saturation (92-100) 98 Oxygen Flow Rate (L/min) 2 Oxygen Delivery Method Nasal Cannula Equipment Usage Equipment in Use Continuous SpO2 Machine # 13 Intake & Output 02/01/17 02/02/17 02/03/17 06:59 06:59 06:59 Intake Total 500 4400 Output Total 700 3850 Balance -200 550 Weight 85.3 kg General appearance: PRESENT: cooperative Extremities exam: PRESENT: other - Compressive dressing in place dry. Results Laboratory Results: 02/02/17 05:45 02/02/17 05:45 02/02/17 02/02/17 05:45 05:45 WBC 12.1 H RBC 4.07 Hgb 11.0 L D Hct 32.7 L MCV 80 MCH 27.0 MCHC 33.6 RDW 16.1 H Plt Count 286 Sodium 134.3 L Potassium 4.3 Chloride 100 Carbon Dioxide 22 Anion Gap 12 BUN 23 H Creatinine 0.49 L Est GFR ( Amer) > 60 Est GFR (Non-Af Amer) > 60 Glucose 109 Calcium 8.7 02/01/17 02/01/17 02/01/17 04:28 04:28 21:50 Creatine Kinase 26 L CK-MB (CK-2) 0.63 0.35 Impressions: Lower Extremity CT 01/31/17 22:49 IMPRESSION: Diffuse soft tissue edema and subcutaneous gas. Findings are consistent with infectious process. There is no CT evidence of osteomyelitis but further evaluation with 3 phase bone scanning or MRI is recommended. No drainable fluid collection is identified on this non contrasted study. Guidance Fluoroscopy 02/01/17 00:00 IMPRESSION: SUCCESSFUL PLACEMENT OF A 5 FR DUAL LUMEN 45 CM PICC IN THE left basilic VEIN. Interventional Vascular Procedure 02/01/17 00:00 IMPRESSION: SUCCESSFUL PLACEMENT OF A 5 FR DUAL LUMEN 45 CM PICC IN THE left basilic VEIN. PICC Line Insertion 02/01/17 00:00 IMPRESSION: SUCCESSFUL PLACEMENT OF A 5 FR DUAL LUMEN 45 CM PICC IN THE left basilic VEIN. Assessment & Plan - Diagnosis (1) Diabetic infection of right foot Is this a current diagnosis for this admission?: YesPlan: Status post guillotine amputation. Continue antibiotics. Will plan revision below the knee amputation in a few days.
[2017-02-02] MEDS: VANCOMYCIN HCL 1,000 MG in DEXTROSE 5%-WATER 250 ML IV SCH ×2 (12:09→21:50)
[2017-02-02] MEDS: NORMAL SALINE 10 ML SDV (SCHEDULED) IV SCH ×2 (12:10→21:49)
[2017-02-02] MEDS: FAMOTIDINE INJ/PF 20 MG/2 ML SDV IV SCH ×2 (12:10→21:50)
[2017-02-02] MEDS ORDERED: LAMOTRIGINE 25 MG TAB.CHEW PO ONE (12:15)
[2017-02-02] MEDS ORDERED: DIAZEPAM 5 MG TABLET PO ONE (12:15)
[2017-02-02] MEDS ORDERED: FLUOXETINE HCL 20 MG CAPSULE PO ONE (12:15)
[2017-02-02] MEDS: LAMOTRIGINE 25 MG TAB.CHEW PO SCH (21:49)
[2017-02-02] MEDS: OLANZAPINE 5 MG TABLET PO SCH (21:49)
[2017-02-03] MEDS: PIPERACILLIN SODIUM/TAZOBACTAM 4.5 GM in NORMAL SALINE 100 ML IV SCH ×5 (01:04→23:45)
[2017-02-03 06:40] LABS: HEMATOCRIT 31.1 % (36.0-47.0); HEMOGLOBIN 10.5 g/dL (12.0-15.5); HGB HCT DIFFERENCE 0.4; MEAN CORPUSCULAR HEMOGLOBIN 27.3 pg (27.0-33.4); MEAN CORPUSCULAR HGB CONC 33.8 g/dL (32.0-36.0); MEAN CORPUSCULAR VOLUME 81 fl (80-97); RED BLOOD COUNT 3.86 10^6/uL (3.72-5.28); RED CELL DISTRIBUTION WIDTH 15.9 % (11.5-14.0); WHITE BLOOD COUNT 9.5 10^3/uL (4.0-10.5)
[2017-02-03 06:52] LABS: ANION GAP 9 (5-19); BLOOD UREA NITROGEN 16 mg/dL (7-20); CALCIUM 7.4 mg/dL (8.4-10.2); CARBON DIOXIDE 22 mmol/L (22-30); CHLORIDE 104 mmol/L (98-107); CREATININE RESULT 0.42 mg/dL (0.52-1.25); GLUCOSE 136 mg/dL (75-110); POTASSIUM 3.7 mmol/L (3.6-5.0); SODIUM 135.1 mmol/L (137-145)
[2017-02-03] MEDS ORDERED: METFORMIN HCL 500 MG TABLET PO SCH (08:00)
[2017-02-03] MEDS: FAMOTIDINE INJ/PF 20 MG/2 ML SDV IV SCH ×2 (09:46→21:32)
[2017-02-03] MEDS: FLUOXETINE HCL 20 MG CAPSULE PO SCH (09:47)
[2017-02-03] MEDS: LAMOTRIGINE 25 MG TAB.CHEW PO SCH ×2 (09:47→21:33)
[2017-02-03] MEDS: NORMAL SALINE 10 ML SDV (SCHEDULED) IV SCH ×2 (09:51→21:33)
[2017-02-03] MEDS: VANCOMYCIN HCL 1,000 MG in DEXTROSE 5%-WATER 250 ML IV SCH (10:13)
[2017-02-03 10:31] LABS: CREATININE RESULT 0.43 mg/dL (0.52-1.25)
[2017-02-03] MEDS ORDERED: DEXTROSE 50%-WATER 25 GM/50 ML DISP.SYRIN IV PRN ×2 (11:08)
[2017-02-03] MEDS ORDERED: DEXTROSE 40% GEL 15 GM TUBE PO PRN ×2 (11:08)
[2017-02-03] MEDS ORDERED: GLUCAGON,HUMAN RECOMB 1 MG INJ IM PRN (11:08)
--- NOTE | 2017-02-03 12:04 | PSYCHOLOGICAL NOTE ---
Psych Note - Psych Note Psych Note: RACHAEL BARRY is a 76 year old female with a history of hypertension and diabetes who refuses insulin and recurrent diabetic foot ulcers who is had approximately 10 days of worsening right foot erythema and malodorous discharge , patient had completed an antibiotic course 3 weeks ago and has had follow-up with the wound care clinic today and was referred to the emergency room for evaluation. She has deep ulceration to the plantar surface at the a.m. TP joint with extensive subcutaneous gas. And is referred to the surgeon for admission. Patient refuses Accu-Cheks and insulin. Patient consented surgery for amputation after initially refusing to undergo the procedure. Clinician attempted to conduct an evaluation; however, the patient is current resting and under heavy medications after her surgery. Re-attempt at a later time
[2017-02-03] MEDS ORDERED: NALOXONE HCL INJ/PF 0.4 MG/1 ML SDV IV PRN (12:33)
[2017-02-03] MEDS: METFORMIN HCL 500 MG TABLET PO SCH (16:41)
--- NOTE | 2017-02-03 16:50 | PDOC PROGRESS REPORT ---
Subjective Progress Note for:: 02/01/17 Subjective:: Patient reports that she is having no pain. Patient does report that she's had a decline over the past year and her mood. She denies any overt SI or HI. Patient denies chest pain, shortness of breath, abdominal pain, nausea, vomiting , fevers, chills, diarrhea, constipation, headache, new onset weakness. Physical Exam Vital Signs: Temp Pulse Resp BP Pulse Ox 97.4 F 80 19 116/44 L 99 02/01/17 06:09 02/01/17 07:00 02/01/17 06:09 02/01/17 06:09 02/01/17 06:09 Intake & Output 01/31/17 02/01/17 02/02/17 06:59 06:59 06:59 Intake Total 500 Output Total 700 Balance -200 Exam: General: Awake alert and orientedx3, no acute respiratory distress HEENT: AT/NC, PERRL, EOMI, oropharynx is moist, pink, no scleral icterus, no conjunctival injection Neck: No JVD, trachea midline Chest: Clear to auscultation bilaterally, no wheezes rhonchi or rales CV: Regular rate and rhythm, normal S1 and S2, no murmur, rub, or gallop Abdomen: Soft, nontender to palpation, nondistended, active bowel sounds; no rebound, rigidity, or guarding Extremities: No cyanosis, clubbing or edema; right lower extremity amputation, bandage clean and dry and intact Neuro: Cranial nerves II through XII are grossly intact without focal deficits; awake alert and oriented x3 Psych: Normal mood and affect Results Laboratory Results: 02/01/17 04:28 02/01/17 04:28 Sodium 131.4 L Potassium 4.2 D Chloride 99 Carbon Dioxide 19 L Anion Gap 13 BUN 41 H Creatinine 0.71 Est GFR ( Amer) > 60 Est GFR (Non-Af Amer) > 60 Glucose 221 H Calcium 9.1 02/01/17 02/01/17 04:28 04:28 Creatine Kinase 26 L CK-MB (CK-2) 0.63 Impressions: Lower Extremity CT 01/31/17 22:49 IMPRESSION: Diffuse soft tissue edema and subcutaneous gas. Findings are consistent with infectious process. There is no CT evidence of osteomyelitis but further evaluation with 3 phase bone scanning or MRI is recommended. No drainable fluid collection is identified on this non contrasted study. Assessment & Plan - Diagnosis (1) Sepsis Is this a current diagnosis for this admission?: YesPlan: Patient with sepsis criteria met with leukocytosis, tachycardia, and overt gas gangrene Maintain map greater than 65 (2) Depression Qualifiers: Depression Type: unspecified Qualified Code(s): F32.9 - Major depressive disorder, single episode, unspecified Is this a current diagnosis for this admission?: YesPlan: Suspect underlying borderline personality disorder. Suspect acute depression complicating this. Will initiate patient on Zyprexa daily at bedtime, Lamictal , and Prozac. (3) Diabetes 1.5, managed as type 1 Is this a current diagnosis for this admission?: YesPlan: Hemoglobin A1c of 10 Continue sliding scale insulin until patient is taking adequate oral (4) Diabetic infection of right foot Is this a current diagnosis for this admission?: YesPlan: Continue Vanco and Zosyn (5) Gas gangrene Is this a current diagnosis for this admission?: YesPlan: Continue vancomycin and Zosyn. Patient is to have surgery today. (6) Hypertension Is this a current diagnosis for this admission?: Yes - Time Time Spent with patient: 35 or more minutes Medications reviewed and adjusted accordingly: Yes Anticipated discharge: Acute Rehab
--- NOTE | 2017-02-03 16:53 | PDOC PROGRESS REPORT ---
Subjective Progress Note for:: 02/03/17 Subjective:: Patient seen earlier today on morning rounds. 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 Daughter reports that she does get to sleep. Physical Exam Vital Signs: Temp Pulse Resp BP Pulse Ox 97.5 F 79 16 110/83 95 02/03/17 16:00 02/03/17 16:00 02/03/17 16:00 02/03/17 16:00 02/03/17 16:00 Pulse Oximeter Continuous Start: 02/01/17 21: 08 Freq: RTQ4 Status: Active Document 02/03/17 12:00 LDA (Rec: 02/03/17 12:10 LDA [email or web address]) Pulse Oximetry Assessment Equipment Usage Equipment Standby Continuous SpO2 Machine # 13 Intake & Output 02/02/17 02/03/17 02/04/17 06:59 06:59 06:59 Intake Total 4400 2820 Output Total 3850 1750 Balance 550 1070 Weight 85.3 kg 85.9 kg Exam: General: Resting comfortably, no acute respiratory distress HEENT: AT/NC, PERRL, EOMI, oropharynx is moist, pink, no scleral icterus, no conjunctival injection Neck: No JVD, trachea midline Chest: Clear to auscultation bilaterally, no wheezes rhonchi or rales CV: Regular rate and rhythm, normal S1 and S2, no murmur, rub, or gallop Abdomen: Soft, nontender to palpation, nondistended, active bowel sounds; no rebound, rigidity, or guarding Extremities: No cyanosis, clubbing or edema; right lower extremity amputation, bandage clean and dry and intact Results Laboratory Results: 02/03/17 06:00 02/03/17 10:02 02/03/17 02/03/17 02/03/17 06:00 06:00 10:02 WBC 9.5 RBC 3.86 Hgb 10.5 L Hct 31.1 L MCV 81 MCH 27.3 MCHC 33.8 RDW 15.9 H Plt Count 272 Sodium 135.1 L Potassium 3.7 Chloride 104 Carbon Dioxide 22 Anion Gap 9 BUN 16 Creatinine 0.42 L 0.43 L Est GFR ( Amer) > 60 > 60 Est GFR (Non-Af Amer) > 60 > 60 Glucose 136 H Calcium 7.4 L 02/01/17 13:10 Catheterized Urine Urine Culture - Final NO GROWTH 2 DAYS 02/01/17 02/01/17 02/01/17 04:28 04:28 21:50 Creatine Kinase 26 L CK-MB (CK-2) 0.63 0.35 Impressions: Lower Extremity CT 01/31/17 22:49 IMPRESSION: Diffuse soft tissue edema and subcutaneous gas. Findings are consistent with infectious process. There is no CT evidence of osteomyelitis but further evaluation with 3 phase bone scanning or MRI is recommended. No drainable fluid collection is identified on this non contrasted study. Guidance Fluoroscopy 02/01/17 00:00 IMPRESSION: SUCCESSFUL PLACEMENT OF A 5 FR DUAL LUMEN 45 CM PICC IN THE left basilic VEIN. Interventional Vascular Procedure 02/01/17 00:00 IMPRESSION: SUCCESSFUL PLACEMENT OF A 5 FR DUAL LUMEN 45 CM PICC IN THE left basilic VEIN. PICC Line Insertion 02/01/17 00:00 IMPRESSION: SUCCESSFUL PLACEMENT OF A 5 FR DUAL LUMEN 45 CM PICC IN THE left basilic VEIN. Transvaginal US 02/02/17 00:00 IMPRESSION: NONDIAGNOSTIC STUDY. Assessment & Plan - Diagnosis (1) Sepsis Qualifiers: Sepsis type: Streptococcus group B Qualified Code(s): A40.1 - Sepsis due to streptococcus, group B Is this a current diagnosis for this admission?: YesPlan: Patient with sepsis criteria met with leukocytosis, tachycardia, and overt gas gangrene Maintain map greater than 65 Patient currently growing group B Streptococcus in her foot. Due to the normal polymicrobial nature of this will continue current antibiotics until cultures finalize. (2) Depression Qualifiers: Depression Type: unspecified Qualified Code(s): F32.9 - Major depressive disorder, single episode, unspecified Is this a current diagnosis for this admission?: YesPlan: Suspect underlying borderline personality disorder. Suspect acute depression complicating this. Will initiate patient on Zyprexa daily at bedtime, Lamictal , and Prozac. (3) Diabetes 1.5, managed as type 1 Is this a current diagnosis for this admission?: YesPlan: Hemoglobin A1c of 10 Reinitiate metformin 500 by mouth twice a day. Patient's blood sugars have substantially improved now that her source of infection is removed. (4) Diabetic infection of right foot Is this a current diagnosis for this admission?: YesPlan: Continue Vanco and Zosyn (5) Gas gangrene Is this a current diagnosis for this admission?: YesPlan: Continue vancomycin and Zosyn. Will add clindamycin if worsens. Patient is to have further stump revision. (6) Hypertension Is this a current diagnosis for this admission?: YesPlan: Currently well-controlled. - Time Time Spent with patient: 15-24 minutes Medications reviewed and adjusted accordingly: Yes Anticipated discharge: Acute Rehab
--- NOTE | 2017-02-03 20:48 | PROGRESS NOTE E ---
Progress Note NAME: ARCHAEL BARRY : 1940 AGE: 76Y DATE: 02/03/2017 ROOM: 431 The patient is 2 days out from a right below-knee guillotine amputation. SUBJECTIVE: The patient has complaints of pain at the surgical site. OBJECTIVE: The patient's open wound at the below-knee amputation site is healing well without any evidence of infection or cellulitis at the current time. DIAGNOSTIC DATA: White blood cell count 9.5. ASSESSMENT: STATUS POST GUILLOTINE BELOW-KNEE AMPUTATION RIGHT FOOT DUE TO SEVERE SEPSIS. POST OPERATIVE DAY 2. It appears that the infection is clearing well with the amputation along with IV antibiotics. Cultures are pending at the current time. Continue local wound care. PLAN: The patient will undergo revision of below-knee amputation within the next 2-3 days. DICTATING PHYSICIAN: PENNY BELTRAN M.D. [id number] PHY#: [id number] ID: [id number] JOB#: [id number] ACCT: [id number] cc: >
[2017-02-03] MEDS: VANCOMYCIN HCL 1,250 MG in DEXTROSE 5%-WATER 250 ML IV SCH (21:32)
[2017-02-03] MEDS: OLANZAPINE 5 MG TABLET PO SCH (21:33)
[2017-02-03] MEDS: HEPARIN SOD (PORCINE) 5,000 UNIT/ML 1 ML SYRINGE SUBCUT SCH (21:33)
[2017-02-04] MEDS: VANCOMYCIN HCL 1,250 MG in DEXTROSE 5%-WATER 250 ML IV SCH ×3 (03:26→18:47)
[2017-02-04] MEDS: PIPERACILLIN SODIUM/TAZOBACTAM 4.5 GM in NORMAL SALINE 100 ML IV SCH ×3 (06:00→17:25)
[2017-02-04 06:20] LABS: HEMATOCRIT 33.4 % (36.0-47.0); HEMOGLOBIN 11.2 g/dL (12.0-15.5); HGB HCT DIFFERENCE 0.2; MEAN CORPUSCULAR HEMOGLOBIN 27.1 pg (27.0-33.4); MEAN CORPUSCULAR HGB CONC 33.6 g/dL (32.0-36.0); MEAN CORPUSCULAR VOLUME 81 fl (80-97); RED BLOOD COUNT 4.14 10^6/uL (3.72-5.28); RED CELL DISTRIBUTION WIDTH 16.2 % (11.5-14.0); WHITE BLOOD COUNT 8.6 10^3/uL (4.0-10.5)
[2017-02-04 06:36] LABS: ANION GAP 8 (5-19); BLOOD UREA NITROGEN 14 mg/dL (7-20); CARBON DIOXIDE 25 mmol/L (22-30); CHLORIDE 101 mmol/L (98-107); GLUCOSE 152 mg/dL (75-110); POTASSIUM 4.2 mmol/L (3.6-5.0); SODIUM 133.6 mmol/L (137-145)
[2017-02-04] MEDS: METFORMIN HCL 500 MG TABLET PO SCH ×2 (08:05→17:26)
[2017-02-04] MEDS: DOCUSATE SODIUM 100 MG CAPSULE PO SCH ×2 (10:21→17:26)
[2017-02-04] MEDS: FLUOXETINE HCL 20 MG CAPSULE PO SCH (10:21)
[2017-02-04] MEDS: HEPARIN SOD (PORCINE) 5,000 UNIT/ML 1 ML SYRINGE SUBCUT SCH (10:22)
[2017-02-04] MEDS: LAMOTRIGINE 25 MG TAB.CHEW PO SCH (10:23)
[2017-02-04] MEDS: FAMOTIDINE INJ/PF 20 MG/2 ML SDV IV SCH (10:23)
[2017-02-04] MEDS: NORMAL SALINE 10 ML SDV (AFTER EACH USE) IV PRN (10:23)
[2017-02-04] MEDS: NORMAL SALINE 10 ML SDV (SCHEDULED) IV SCH ×2 (10:24→22:53)
--- NOTE | 2017-02-04 10:30 | PDOC PROGRESS REPORT ---
Subjective Progress Note for:: 02/04/17 Physical Exam Vital Signs: Temp Pulse Resp BP Pulse Ox 98.3 F 84 18 140/58 H 92 02/04/17 08:10 02/04/17 08:10 02/04/17 08:10 02/04/17 08:10 02/04/17 08:10 Pulse Oximeter Continuous Start: 02/01/17 21: 08 Freq: RTQ4 Status: Active Document 02/04/17 04:00 SFL (Rec: 02/04/17 05:15 SFL [email or web address]) Pulse Oximetry Assessment Equipment Usage Equipment Standby Continuous SpO2 Machine # 13 Intake & Output 02/03/17 02/04/17 02/05/17 06:59 06:59 06:59 Intake Total 2820 2387 Output Total 1750 1475 Balance 1070 912 Weight 85.9 kg 83.5 kg stump dressing dry.Denies pain Results Laboratory Results: 02/04/17 05:45 02/04/17 05:45 02/03/17 02/04/17 02/04/17 10:02 05:45 05:45 WBC 8.6 RBC 4.14 Hgb 11.2 L Hct 33.4 L MCV 81 MCH 27.1 MCHC 33.6 RDW 16.2 H Plt Count 328 Sodium 133.6 L Potassium 4.2 Chloride 101 Carbon Dioxide 25 Anion Gap 8 BUN 14 Creatinine 0.43 L 0.50 L Est GFR ( Amer) > 60 > 60 Est GFR (Non-Af Amer) > 60 > 60 Glucose 152 H Calcium 8.0 L 02/01/17 13:10 Catheterized Urine Urine Culture - Final NO GROWTH 2 DAYS 02/01/17 02/01/17 02/01/17 04:28 04:28 21:50 Creatine Kinase 26 L CK-MB (CK-2) 0.63 0.35 Impressions: Lower Extremity CT 01/31/17 22:49 IMPRESSION: Diffuse soft tissue edema and subcutaneous gas. Findings are consistent with infectious process. There is no CT evidence of osteomyelitis but further evaluation with 3 phase bone scanning or MRI is recommended. No drainable fluid collection is identified on this non contrasted study. Guidance Fluoroscopy 02/01/17 00:00 IMPRESSION: SUCCESSFUL PLACEMENT OF A 5 FR DUAL LUMEN 45 CM PICC IN THE left basilic VEIN. Interventional Vascular Procedure 02/01/17 00:00 IMPRESSION: SUCCESSFUL PLACEMENT OF A 5 FR DUAL LUMEN 45 CM PICC IN THE left basilic VEIN. PICC Line Insertion 02/01/17 00:00 IMPRESSION: SUCCESSFUL PLACEMENT OF A 5 FR DUAL LUMEN 45 CM PICC IN THE left basilic VEIN. Transvaginal US 02/02/17 00:00 IMPRESSION: NONDIAGNOSTIC STUDY. Assessment & Plan - Plan Summary Plan Summary: formal BKA amp Monday
[2017-02-04] MEDS ORDERED: LAMOTRIGINE 25 MG TAB.CHEW PO SCH (10:49)
[2017-02-04] MEDS ORDERED: OLANZAPINE 5 MG TAB.RAPDIS PO ONE ×2 (11:30→11:45)
[2017-02-04] MEDS ORDERED: LAMOTRIGINE 25 MG TAB.CHEW PO ONE (12:00)
[2017-02-04] MEDS ORDERED: LAMOTRIGINE 100 MG TABLET PO ONE (12:00)
--- NOTE | 2017-02-04 16:47 | PDOC PROGRESS REPORT ---
Subjective Progress Note for:: 02/04/17 Subjective:: Patient was crying hysterically asking for her daughter this morning. Unable to obtain review of systems secondary to mental status. Physical Exam Vital Signs: Temp Pulse Resp BP Pulse Ox 98.3 F 84 18 140/58 H 92 02/04/17 08:10 02/04/17 08:10 02/04/17 08:10 02/04/17 08:10 02/04/17 08:10 Pulse Oximeter Continuous Start: 02/01/17 21: 08 Freq: RTQ4 Status: Active Document 02/04/17 04:00 SFL (Rec: 02/04/17 05:15 SFL [email or web address]) Pulse Oximetry Assessment Equipment Usage Equipment Standby Continuous SpO2 Machine # 13 Intake & Output 02/03/17 02/04/17 02/05/17 06:59 06:59 06:59 Intake Total 2820 2387 Output Total 1750 1475 Balance 1070 912 Weight 85.9 kg 83.5 kg Exam: General: Awake, alert, and crying, no acute respiratory distress HEENT: AT/NC, PERRL, EOMI, oropharynx is moist, pink, no scleral icterus, no conjunctival injection Neck: No JVD, trachea midline Chest: Clear to auscultation bilaterally, no wheezes rhonchi or rales CV: Regular rate and rhythm, normal S1 and S2, no murmur, rub, or gallop Abdomen: Soft, nontender to palpation, nondistended, active bowel sounds; no rebound, rigidity, or guarding Extremities: No cyanosis, clubbing or edema; right lower extremity amputation, bandage clean and dry and intact Psych: Labile, tearful Results Laboratory Results: 02/04/17 05:45 02/04/17 05:45 02/03/17 02/04/17 02/04/17 10:02 05:45 05:45 WBC 8.6 RBC 4.14 Hgb 11.2 L Hct 33.4 L MCV 81 MCH 27.1 MCHC 33.6 RDW 16.2 H Plt Count 328 Sodium 133.6 L Potassium 4.2 Chloride 101 Carbon Dioxide 25 Anion Gap 8 BUN 14 Creatinine 0.43 L 0.50 L Est GFR ( Amer) > 60 > 60 Est GFR (Non-Af Amer) > 60 > 60 Glucose 152 H Calcium 8.0 L 02/01/17 13:10 Catheterized Urine Urine Culture - Final NO GROWTH 2 DAYS 02/01/17 02/01/17 02/01/17 04:28 04:28 21:50 Creatine Kinase 26 L CK-MB (CK-2) 0.63 0.35 Impressions: Lower Extremity CT 01/31/17 22:49 IMPRESSION: Diffuse soft tissue edema and subcutaneous gas. Findings are consistent with infectious process. There is no CT evidence of osteomyelitis but further evaluation with 3 phase bone scanning or MRI is recommended. No drainable fluid collection is identified on this non contrasted study. Guidance Fluoroscopy 02/01/17 00:00 IMPRESSION: SUCCESSFUL PLACEMENT OF A 5 FR DUAL LUMEN 45 CM PICC IN THE left basilic VEIN. Interventional Vascular Procedure 02/01/17 00:00 IMPRESSION: SUCCESSFUL PLACEMENT OF A 5 FR DUAL LUMEN 45 CM PICC IN THE left basilic VEIN. PICC Line Insertion 02/01/17 00:00 IMPRESSION: SUCCESSFUL PLACEMENT OF A 5 FR DUAL LUMEN 45 CM PICC IN THE left basilic VEIN. Transvaginal US 02/02/17 00:00 IMPRESSION: NONDIAGNOSTIC STUDY. Assessment & Plan - Diagnosis (1) Sepsis Qualifiers: Sepsis type: Streptococcus group B Qualified Code(s): A40.1 - Sepsis due to streptococcus, group B Is this a current diagnosis for this admission?: YesPlan: Patient with sepsis criteria met with leukocytosis, tachycardia, and overt gas gangrene Maintain map greater than 65 Patient currently growing group B Streptococcus in her foot. Due to the normal polymicrobial nature of this will continue current antibiotics until cultures finalize. (2) Depression Qualifiers: Depression Type: unspecified Qualified Code(s): F32.9 - Major depressive disorder, single episode, unspecified Is this a current diagnosis for this admission?: YesPlan: Suspect underlying borderline personality disorder. Suspect acute depression complicating this. Patient on Zyprexa daily at bedtime, Lamictal, and Prozac. Give additional dose of Zyprexa now. Will increase Lamictal (3) Diabetes 1.5, managed as type 1 Is this a current diagnosis for this admission?: YesPlan: Hemoglobin A1c of 10 Reinitiate metformin 500 by mouth twice a day. Patient's blood sugars have substantially improved now that her source of infection is removed. (4) Diabetic infection of right foot Is this a current diagnosis for this admission?: YesPlan: Continue Vanco and Zosyn (5) Gas gangrene Is this a current diagnosis for this admission?: YesPlan: Continue vancomycin and Zosyn. Will add clindamycin if worsens. Patient is to have further stump revision. (6) Hypertension Is this a current diagnosis for this admission?: YesPlan: Currently well-controlled. - Time Time Spent with patient: 25-34 minutes Medications reviewed and adjusted accordingly: Yes
[2017-02-04] MEDS ORDERED: BISACODYL 10 MG SUPP.RECT PR ONE (17:00)
[2017-02-04] MEDS: OLANZAPINE 5 MG TABLET PO SCH (22:53)
[2017-02-04] MEDS: LAMOTRIGINE 100 MG TABLET PO SCH (22:53)
[2017-02-04] MEDS: FAMOTIDINE 20 MG TABLET PO SCH (22:53)
[2017-02-04] MEDS: HEPARIN SOD (PORCINE) 5,000 UNIT/ML 1 ML SYRINGE IV SCH (22:53)
[2017-02-04] MEDS ORDERED: NYSTATIN CREAM 15 GM ONE (22:55)
[2017-02-04] MEDS: NYSTATIN CREAM 15 GM TP SCH (23:41)
[2017-02-05] MEDS: PIPERACILLIN SODIUM/TAZOBACTAM 4.5 GM in NORMAL SALINE 100 ML IV SCH ×4 (00:51→17:46)
[2017-02-05] MEDS: VANCOMYCIN HCL 1,250 MG in DEXTROSE 5%-WATER 250 ML IV SCH ×3 (02:41→18:38)
[2017-02-05 06:51] LABS: HEMOGLOBIN 11.2 g/dL (12.0-15.5); HGB HCT DIFFERENCE 0.6; MEAN CORPUSCULAR HEMOGLOBIN 27.4 pg (27.0-33.4); MEAN CORPUSCULAR HGB CONC 33.9 g/dL (32.0-36.0); MEAN CORPUSCULAR VOLUME 81 fl (80-97); RED BLOOD COUNT 4.09 10^6/uL (3.72-5.28); RED CELL DISTRIBUTION WIDTH 16.1 % (11.5-14.0); WHITE BLOOD COUNT 8.3 10^3/uL (4.0-10.5)
[2017-02-05 07:10] LABS: ANION GAP 9 (5-19); BLOOD UREA NITROGEN 10 mg/dL (7-20); CALCIUM 8.2 mg/dL (8.4-10.2); CARBON DIOXIDE 26 mmol/L (22-30); CHLORIDE 104 mmol/L (98-107); CREATININE RESULT 0.52 mg/dL (0.52-1.25); GLUCOSE 153 mg/dL (75-110); SODIUM 138.6 mmol/L (137-145)
[2017-02-05] MEDS ORDERED: LISINOPRIL 10 MG TABLET PO SCH (10:00)
[2017-02-05] MEDS: FLUOXETINE HCL 20 MG CAPSULE PO SCH (10:51)
[2017-02-05] MEDS: DOCUSATE SODIUM 100 MG CAPSULE PO SCH ×2 (10:51→17:44)
[2017-02-05] MEDS: LAMOTRIGINE 100 MG TABLET PO SCH ×2 (10:51→21:42)
[2017-02-05] MEDS: METFORMIN HCL 500 MG TABLET PO SCH ×2 (10:51→17:45)
[2017-02-05] MEDS: FAMOTIDINE 20 MG TABLET PO SCH ×2 (10:51→21:41)
[2017-02-05] MEDS: HEPARIN SOD (PORCINE) 5,000 UNIT/ML 1 ML SYRINGE IV SCH (10:52)
[2017-02-05] MEDS: NORMAL SALINE 10 ML SDV (SCHEDULED) IV SCH ×2 (10:52→21:42)
[2017-02-05] MEDS: NYSTATIN CREAM 15 GM TP SCH ×2 (10:54→17:46)
--- NOTE | 2017-02-05 14:33 | PDOC PROGRESS REPORT ---
Subjective Progress Note for:: 02/05/17 Subjective:: Patient seen earlier today on morning rounds. Patient denies chest pain, shortness of breath, abdominal pain, nausea, vomiting , fevers, chills, diarrhea, constipation, headache, new onset weakness. She reports her pain is well-controlled. Physical Exam Vital Signs: Temp Pulse Resp BP Pulse Ox 97.4 F 73 16 141/50 H 97 02/05/17 11:18 02/05/17 11:18 02/05/17 11:18 02/05/17 11:18 02/05/17 11:18 Pulse Oximeter Continuous Start: 02/01/17 21: 08 Freq: RTQ4 Status: Active Document 02/05/17 08:00 J (Rec: 02/05/17 09:36 JDR [email or web address]) Pulse Oximetry Assessment Oxygen Saturation (92-100) 98 Oxygen Flow Rate (L/min) 2 Oxygen Delivery Method Nasal Cannula Fraction of Inspired Oxygen (FIO2) 28 Equipment Usage Equipment in Use Continuous SpO2 Machine # 13 Intake & Output 02/04/17 02/05/17 02/06/17 06:59 06:59 06:59 Intake Total 2387 3067 Output Total 1475 2030 Balance 912 1037 Weight 83.5 kg 79.6 kg Exam: General: Awake, alert, and answering questions appropriately, no acute respiratory distress HEENT: AT/NC, PERRL, EOMI, oropharynx is moist, pink, no scleral icterus, no conjunctival injection Neck: No JVD, trachea midline Chest: Clear to auscultation bilaterally, no wheezes rhonchi or rales CV: Regular rate and rhythm, normal S1 and S2, no murmur, rub, or gallop Abdomen: Soft, nontender to palpation, nondistended, active bowel sounds; no rebound, rigidity, or guarding Extremities: No cyanosis, clubbing or edema; right lower extremity amputation, bandage clean and dry and intact Psych: Flat affect, withdrawn mood Results Laboratory Results: 02/05/17 06:25 02/05/17 06:25 02/05/17 02/05/17 06:25 06:25 WBC 8.3 RBC 4.09 Hgb 11.2 L Hct 33.0 L MCV 81 MCH 27.4 MCHC 33.9 RDW 16.1 H Plt Count 301 Sodium 138.6 Potassium 4.0 Chloride 104 Carbon Dioxide 26 Anion Gap 9 BUN 10 Creatinine 0.52 Est GFR ( Amer) > 60 Est GFR (Non-Af Amer) > 60 Glucose 153 H Calcium 8.2 L 02/01/17 18:05 Foot - Right Gram Stain - Final 02/01/17 02/01/17 02/01/17 04:28 04:28 21:50 Creatine Kinase 26 L CK-MB (CK-2) 0.63 0.35 Impressions: Lower Extremity CT 01/31/17 22:49 IMPRESSION: Diffuse soft tissue edema and subcutaneous gas. Findings are consistent with infectious process. There is no CT evidence of osteomyelitis but further evaluation with 3 phase bone scanning or MRI is recommended. No drainable fluid collection is identified on this non contrasted study. Guidance Fluoroscopy 02/01/17 00:00 IMPRESSION: SUCCESSFUL PLACEMENT OF A 5 FR DUAL LUMEN 45 CM PICC IN THE left basilic VEIN. Interventional Vascular Procedure 02/01/17 00:00 IMPRESSION: SUCCESSFUL PLACEMENT OF A 5 FR DUAL LUMEN 45 CM PICC IN THE left basilic VEIN. PICC Line Insertion 02/01/17 00:00 IMPRESSION: SUCCESSFUL PLACEMENT OF A 5 FR DUAL LUMEN 45 CM PICC IN THE left basilic VEIN. Transvaginal US 02/02/17 00:00 IMPRESSION: NONDIAGNOSTIC STUDY. Assessment & Plan - Diagnosis (1) Sepsis Qualifiers: Sepsis type: Streptococcus group B Qualified Code(s): A40.1 - Sepsis due to streptococcus, group B Is this a current diagnosis for this admission?: YesPlan: Patient with sepsis criteria met with leukocytosis, tachycardia, and overt gas gangrene Maintain map greater than 65 Patient currently growing group B Streptococcus in her foot. Due to the normal polymicrobial nature of this will continue current antibiotics until cultures finalize. (2) Depression Qualifiers: Depression Type: unspecified Qualified Code(s): F32.9 - Major depressive disorder, single episode, unspecified Is this a current diagnosis for this admission?: YesPlan: Suspect underlying borderline personality disorder. Suspect acute depression complicating this. Patient on Zyprexa daily at bedtime, Lamictal, and Prozac. Continue with this. (3) Diabetes 1.5, managed as type 1 Is this a current diagnosis for this admission?: YesPlan: Hemoglobin A1c of 10 Reinitiate metformin 500 by mouth twice a day. Patient's blood sugars have substantially improved now that her source of infection is removed. (4) Diabetic infection of right foot Is this a current diagnosis for this admission?: YesPlan: Continue Kamran and Meng (5) Gas gangrene Is this a current diagnosis for this admission?: Yes (6) Hypertension Is this a current diagnosis for this admission?: Yes (7) Acute blood loss anemia Is this a current diagnosis for this admission?: YesPlan: Patient with very minimal anemia after surgery. We'll continue to monitor. - Time Time Spent with patient: 25-34 minutes Medications reviewed and adjusted accordingly: Yes Anticipated discharge: Acute Rehab
--- NOTE | 2017-02-05 17:49 | PSYCHOLOGICAL NOTE ---
Psych Note - Psych Note Psych Note: Second attempt was made to consult patient who is a 76 year old female admitted to [facility] Hospital[facility] and who is also followed by Surgical. Patient thus far has had one leg amputation and is scheduled for a second Monday morning. Patient at this time declined consultation as she was sleeping. She states she would talk at a later time. Will attempt again.
[2017-02-05] MEDS: OLANZAPINE 5 MG TABLET PO SCH (21:41)
[2017-02-06] MEDS: DEXTROSE 5%-NORMAL SALINE 1,000 ML IV PRN ×2 (01:37→14:08)
[2017-02-06] MEDS: PIPERACILLIN SODIUM/TAZOBACTAM 4.5 GM in NORMAL SALINE 100 ML IV SCH ×4 (01:38→18:21)
[2017-02-06] MEDS: VANCOMYCIN HCL 1,250 MG in DEXTROSE 5%-WATER 250 ML IV SCH ×3 (02:52→22:36)
[2017-02-06 07:08] LABS: ABSOLUTE BASOPHILS # (AUTO) 0.1 10^3/uL (0.0-0.2); ABSOLUTE EOSINOPHILS # (AUTO) 0.3 10^3/uL (0.0-0.6); ABSOLUTE LYMPHOCYTES (AUTO) 1.6 10^3/uL (0.5-4.7); ABSOLUTE MONOCYTES (AUTO) 0.6 10^3/uL (0.1-1.4); ABSOLUTE NEUT (AUTO) 7.1 10^3/uL (1.7-8.2); BASOPHILS % (AUTO) 0.7 % (0-2); EOSINOPHILS % (AUTO) 2.9 % (0-6); HEMATOCRIT 33.8 % (36.0-47.0); HEMOGLOBIN 11.4 g/dL (12.0-15.5); HGB HCT DIFFERENCE 0.4; LYMPHOCYTES % (AUTO) 16.4 % (13-45); MEAN CORPUSCULAR HEMOGLOBIN 27.4 pg (27.0-33.4); MEAN CORPUSCULAR HGB CONC 33.7 g/dL (32.0-36.0); MEAN CORPUSCULAR VOLUME 81 fl (80-97); MONOCYTES % (AUTO) 6.6 % (3-13); RED BLOOD COUNT 4.16 10^6/uL (3.72-5.28); RED CELL DISTRIBUTION WIDTH 15.9 % (11.5-14.0); SEGMENTED NEUTROPHILS % (AUTO) 73.4 % (42-78); WHITE BLOOD COUNT 9.6 10^3/uL (4.0-10.5)
[2017-02-06 07:29] LABS: ANION GAP 10 (5-19); BLOOD UREA NITROGEN 8 mg/dL (7-20); CALCIUM 8.4 mg/dL (8.4-10.2); CARBON DIOXIDE 26 mmol/L (22-30); CHLORIDE 105 mmol/L (98-107); CREATININE RESULT 0.65 mg/dL (0.52-1.25); GLUCOSE 181 mg/dL (75-110); POTASSIUM 3.8 mmol/L (3.6-5.0); SODIUM 141.4 mmol/L (137-145)
[2017-02-06] MEDS: METFORMIN HCL 500 MG TABLET PO SCH ×2 (08:50→18:20)
[2017-02-06] MEDS ORDERED: LIDOCAINE 1% INJ-PF (10 MG/ML) 30 ML SDV ONE (08:59)
[2017-02-06] MEDS ORDERED: MIDAZOLAM 2 MG/2 ML INJ ONE (09:05)
[2017-02-06] MEDS ORDERED: FENTANYL CITRATE INJ/PF 100 MCG/2 ML AMPUL ONE (09:05)
[2017-02-06] MEDS ORDERED: ACETAMINOPHEN 100 ML IV ONE (09:05)
[2017-02-06] MEDS ORDERED: PROPOFOL INJ 200 MG/20 ML VIAL IV ONE (09:05)
[2017-02-06] MEDS ORDERED: DEXMEDETOMIDINE INJ 80 MCG/20 ML VIAL IV ONE (09:27)
[2017-02-06] MEDS ORDERED: MORPHINE SULFATE 10 MG/ML INJ ONE ×2 (09:28→11:31)
[2017-02-06] MEDS: DOCUSATE SODIUM 100 MG CAPSULE PO SCH ×2 (10:11→18:20)
[2017-02-06] MEDS: FAMOTIDINE 20 MG TABLET PO SCH ×2 (10:11→22:39)
[2017-02-06] MEDS ORDERED: PROMETHAZINE HCL INJ 25 MG/1 ML VIAL IV PRN ×2 (10:22)
[2017-02-06] MEDS ORDERED: DIPHENHYDRAMINE HCL 50 MG/ML VIAL IV PRN (10:22)
[2017-02-06] MEDS ORDERED: MORPHINE SULFATE 10 MG/ML INJ IV PRN (10:22)
[2017-02-06] MEDS ORDERED: FENTANYL CITRATE INJ/PF 100 MCG/2 ML AMPUL IV PRN ×3 (10:22)
[2017-02-06] MEDS ORDERED: MEPERIDINE HCL/PF INJ 25 MG/1 ML DISP.SYRIN IV PRN (10:22)
--- NOTE | 2017-02-06 12:09 | Operative Report ---
Nonrecallable Operative Report DATE OF SURGERY: 02/06/17 PREOPERATIVE DIAGNOSIS: Status post right gnytl-buf-vagz amputation luc[place] POSTOPERATIVE DIAGNOSIS: Same OPERATION: Formal closure of right oypky-xgk-lvun amputation SURGEON: DUANE ANDERSON ANESTHESIA: GA TISSUE REMOVED OR ALTERED: Portion of right lower leg excluding foot COMPLICATIONS: None ESTIMATED BLOOD LOSS: 250 mL INTRAOPERATIVE FINDINGS: See below PROCEDURE: The patient was seen in the preop holding area with her right leg was marked. She was taken to the main operating room where general anesthesia was used. The right foot dressing was removed, and the right lower extremity prepped and draped in sterile fashion. The transected exposed leg, at the level of the lower third , was covered with a dressing. Surgical plan and surgical time out conducted. Washings were made on the patient's skin for a standard rrssd-kfr-krhm amputation, approximately 12 cm below the right anterior tibial tuberosity, and approximately 20 cm posteriorly. The skin subcutaneous tissue muscle all divided with knife and electrocautery. Veins and goals ligated as encountered. The periosteum was elevated off of the tibial and the tibia transected with the oscillating saw. The fibula was exposed, a ostium elevated and the fibula transected with the oscillating saw as well. The remainder of the leg was amputated on a diagonal bias , ligating the tibioperoneal trunk with 0 Vicryl suture as well as the posterior tibial nerve with same. We now close the stump satisfactorily with 2-0 Vicryl for the myodesis, and skin approximated with connie and 3-0 Ethilon suture. Of note, there was no foul-smelling the wound in any point prior to formal closure. Blood supply to the tissue was excellent, and the posterior tibial artery as well as the anterior tibial were patent. The closure was snug but not tight. Dressing applied with Xeroform 4 x 4's Kerlix and Ovidio wrap. Postoperative procedure well, extubated to recovery in stable condition.
[2017-02-06] MEDS ORDERED: DEXAMETHASONE SOD PHOSPHATE INJ 4 MG/1 ML VIAL ONE (12:26)
[2017-02-06] MEDS ORDERED: GLYCOPYRROLATE INJ 0.4 MG/2 ML VIAL ONE (12:26)
[2017-02-06] MEDS ORDERED: ONDANSETRON HCL INJ/PF 4 MG/2 ML SDV ONE (12:26)
[2017-02-06] MEDS: LAMOTRIGINE 100 MG TABLET PO SCH ×2 (12:36→22:39)
[2017-02-06] MEDS: FLUOXETINE HCL 20 MG CAPSULE PO SCH (12:37)
[2017-02-06] MEDS: NORMAL SALINE 10 ML SDV (SCHEDULED) IV SCH ×2 (13:37→22:41)
[2017-02-06 13:41] LABS: CREATININE RESULT 0.64 mg/dL (0.52-1.25)
[2017-02-06] MEDS: NYSTATIN CREAM 15 GM TP SCH ×2 (13:41→18:21)
[2017-02-06] MEDS: LISINOPRIL 10 MG TABLET PO SCH (16:11)
--- NOTE | 2017-02-06 20:01 | PDOC PROGRESS REPORT ---
Subjective Progress Note for:: 02/06/17 Subjective:: Patient is seen after surgery and is quite lethargic. She is unable to give review of systems. Physical Exam Vital Signs: Temp Pulse Resp BP Pulse Ox 98.1 F 78 16 148/57 H 94 02/06/17 04:42 02/06/17 04:42 02/06/17 05:00 02/06/17 04:42 02/06/17 05:00 Pulse Oximeter Continuous Start: 02/01/17 21: 08 Freq: RTQ4 Status: Active Document 02/06/17 03:52 STI (Rec: 02/06/17 03:52 STI [email or web address]) Pulse Oximetry Assessment Oxygen Saturation (92-100) 96 Oxygen Delivery Method Room Air Fraction of Inspired Oxygen (FIO2) 21 Equipment Usage Equipment Standby Continuous SpO2 Machine # [id number] Intake & Output 02/05/17 02/06/17 02/07/17 06:59 06:59 06:59 Intake Total 3067 2410 Output Total 2030 2800 Balance 1037 -390 Weight 79.6 kg 81.1 kg Exam: General: Lethargic, no acute respiratory distress HEENT: AT/NC, PERRL-minimally reactive and pinpoint, EOMI, oropharynx is moist, pink, no scleral icterus, no conjunctival injection Neck: No JVD, trachea midline Chest: Clear to auscultation bilaterally, no wheezes rhonchi or rales CV: Regular rate and rhythm, normal S1 and S2, no murmur, rub, or gallop Abdomen: Soft, nontender to palpation, nondistended, active bowel sounds; no rebound, rigidity, or guarding Extremities: No cyanosis, clubbing or edema; right lower extremity amputation, bandage clean and dry and intact Results Laboratory Results: 02/06/17 06:33 02/06/17 06:33 02/06/17 02/06/17 06:33 06:33 WBC 9.6 RBC 4.16 Hgb 11.4 L Hct 33.8 L MCV 81 MCH 27.4 MCHC 33.7 RDW 15.9 H Plt Count 291 Seg Neutrophils % 73.4 Lymphocytes % 16.4 Monocytes % 6.6 Eosinophils % 2.9 Basophils % 0.7 Absolute Neutrophils 7.1 Absolute Lymphocytes 1.6 Absolute Monocytes 0.6 Absolute Eosinophils 0.3 Absolute Basophils 0.1 Sodium 141.4 Potassium 3.8 Chloride 105 Carbon Dioxide 26 Anion Gap 10 BUN 8 Creatinine 0.65 Est GFR ( Amer) > 60 Est GFR (Non-Af Amer) > 60 Glucose 181 H Calcium 8.4 02/01/17 18:05 Foot - Right Gram Stain - Final 02/01/17 18:05 Foot - Right Wound Culture - Final Group B Beta Streptococcus Beta Streptococcus Not Group A Peptostreptococcus Species Skin Elaina 02/01/17 02/01/17 02/01/17 04:28 04:28 21:50 Creatine Kinase 26 L CK-MB (CK-2) 0.63 0.35 Impressions: Lower Extremity CT 01/31/17 22:49 IMPRESSION: Diffuse soft tissue edema and subcutaneous gas. Findings are consistent with infectious process. There is no CT evidence of osteomyelitis but further evaluation with 3 phase bone scanning or MRI is recommended. No drainable fluid collection is identified on this non contrasted study. Guidance Fluoroscopy 02/01/17 00:00 IMPRESSION: SUCCESSFUL PLACEMENT OF A 5 FR DUAL LUMEN 45 CM PICC IN THE left basilic VEIN. Interventional Vascular Procedure 02/01/17 00:00 IMPRESSION: SUCCESSFUL PLACEMENT OF A 5 FR DUAL LUMEN 45 CM PICC IN THE left basilic VEIN. PICC Line Insertion 02/01/17 00:00 IMPRESSION: SUCCESSFUL PLACEMENT OF A 5 FR DUAL LUMEN 45 CM PICC IN THE left basilic VEIN. Transvaginal US 02/02/17 00:00 IMPRESSION: NONDIAGNOSTIC STUDY. Assessment & Plan - Diagnosis (1) Sepsis Qualifiers: Sepsis type: Streptococcus group B Qualified Code(s): A40.1 - Sepsis due to streptococcus, group B Is this a current diagnosis for this admission?: YesPlan: Patient with sepsis criteria met with leukocytosis, tachycardia, and overt gas gangrene Maintain map greater than 65 Patient currently growing group B Streptococcus in her foot. Due to the normal polymicrobial nature of this will continue current antibiotics until cultures finalize. (2) Depression Qualifiers: Depression Type: unspecified Qualified Code(s): F32.9 - Major depressive disorder, single episode, unspecified Is this a current diagnosis for this admission?: YesPlan: Suspect underlying borderline personality disorder. Suspect acute depression complicating this. Patient on Zyprexa daily at bedtime, Lamictal, and Prozac. Continue with this. (3) Diabetes 1.5, managed as type 1 Is this a current diagnosis for this admission?: YesPlan: Hemoglobin A1c of 10.0 Reinitiate metformin 500 by mouth twice a day. Patient's blood sugars have substantially improved now that her source of infection is removed. 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 (6) Hypertension Qualifiers: Hypertension type: essential hypertension Qualified Code(s): I10 - Essential (primary) hypertension Is this a current diagnosis for this admission?: YesPlan: Patient on lisinopril. Current hypertension likely felt secondary to pain and will monitor. (7) Acute blood loss anemia Is this a current diagnosis for this admission?: YesPlan: Patient with very minimal anemia after surgery. We'll continue to monitor. Transfuse if below 8 (8) Postmenopausal bleeding Is this a current diagnosis for this admission?: YesPlan: Patient with postmenopausal bleeding. She has reported history of fibroids and was instructed to follow-up with [facility] as an outpatient. (9) DVT prophylaxis Is this a current diagnosis for this admission?: YesPlan: This has been problematic in this patient as she has a fear of needles and will not tolerate subcutaneous shots. Recommended initiation of Xarelto at the earliest convenience of surgery. - Time Time Spent with patient: 25-34 minutes Medications reviewed and adjusted accordingly: Yes Anticipated discharge: Acute Rehab
[2017-02-06] MEDS: OLANZAPINE 5 MG TABLET PO SCH (22:39)
[2017-02-07] MEDS: PIPERACILLIN SODIUM/TAZOBACTAM 4.5 GM in NORMAL SALINE 100 ML IV SCH ×4 (00:37→17:13)
[2017-02-07] MEDS: DEXTROSE 5%-NORMAL SALINE 1,000 ML IV PRN (05:15)
[2017-02-07 06:41] LABS: HEMATOCRIT 31.6 % (36.0-47.0); HEMOGLOBIN 10.6 g/dL (12.0-15.5); HGB HCT DIFFERENCE 0.2; MEAN CORPUSCULAR HGB CONC 33.4 g/dL (32.0-36.0); MEAN CORPUSCULAR VOLUME 81 fl (80-97); RED BLOOD COUNT 3.91 10^6/uL (3.72-5.28); RED CELL DISTRIBUTION WIDTH 16.3 % (11.5-14.0); WHITE BLOOD COUNT 9.8 10^3/uL (4.0-10.5)
[2017-02-07 06:50] LABS: ANION GAP 8 (5-19); BLOOD UREA NITROGEN 8 mg/dL (7-20); CALCIUM 8.3 mg/dL (8.4-10.2); CARBON DIOXIDE 29 mmol/L (22-30); CHLORIDE 103 mmol/L (98-107); CREATININE RESULT 0.59 mg/dL (0.52-1.25); GLUCOSE 174 mg/dL (75-110); POTASSIUM 3.7 mmol/L (3.6-5.0); SODIUM 139.5 mmol/L (137-145)
[2017-02-07] MEDS: METFORMIN HCL 500 MG TABLET PO SCH ×2 (08:37→17:13)
--- NOTE | 2017-02-07 08:58 | PDOC PROGRESS REPORT ---
Subjective Subjective:: C/O pains op site Start PT Tx today. Continue IV antibiotics Physical Exam Vital Signs: Temp Pulse Resp BP Pulse Ox 97.4 F 93 12 161/74 H 97 02/07/17 08:00 02/07/17 08:00 02/07/17 08:00 02/07/17 08:00 02/07/17 07:00 Pulse Oximeter Continuous Start: 02/01/17 21: 08 Freq: RTQ4 Status: Active Document 02/07/17 01:24 JS (Rec: 02/07/17 01:24 JS [email or web address]) Pulse Oximetry Assessment Equipment Usage Equipment Standby Continuous SpO2 Machine # 13 Intake & Output 02/06/17 02/07/17 02/08/17 06:59 06:59 06:59 Intake Total 2410 6585 Output Total 2800 4350 Balance -390 2235 Weight 81.1 kg 89.5 kg Results Laboratory Results: 02/07/17 06:25 02/07/17 06:25 02/06/17 02/07/17 02/07/17 13:11 06:25 06:25 WBC 9.8 RBC 3.91 Hgb 10.6 L Hct 31.6 L MCV 81 MCH 27.0 MCHC 33.4 RDW 16.3 H Plt Count 287 Sodium 139.5 Potassium 3.7 Chloride 103 Carbon Dioxide 29 Anion Gap 8 BUN 8 Creatinine 0.64 0.59 Est GFR ( Amer) > 60 > 60 Est GFR (Non-Af Amer) > 60 > 60 Glucose 174 H Calcium 8.3 L 02/01/17 02/01/17 02/01/17 04:28 04:28 21:50 Creatine Kinase 26 L CK-MB (CK-2) 0.63 0.35 Impressions: Lower Extremity CT 01/31/17 22:49 IMPRESSION: Diffuse soft tissue edema and subcutaneous gas. Findings are consistent with infectious process. There is no CT evidence of osteomyelitis but further evaluation with 3 phase bone scanning or MRI is recommended. No drainable fluid collection is identified on this non contrasted study. Guidance Fluoroscopy 02/01/17 00:00 IMPRESSION: SUCCESSFUL PLACEMENT OF A 5 FR DUAL LUMEN 45 CM PICC IN THE left basilic VEIN. Interventional Vascular Procedure 02/01/17 00:00 IMPRESSION: SUCCESSFUL PLACEMENT OF A 5 FR DUAL LUMEN 45 CM PICC IN THE left basilic VEIN. PICC Line Insertion 02/01/17 00:00 IMPRESSION: SUCCESSFUL PLACEMENT OF A 5 FR DUAL LUMEN 45 CM PICC IN THE left basilic VEIN. Transvaginal US 02/02/17 00:00 IMPRESSION: NONDIAGNOSTIC STUDY.
[2017-02-07] MEDS: FLUOXETINE HCL 20 MG CAPSULE PO SCH (10:29)
[2017-02-07] MEDS: LAMOTRIGINE 100 MG TABLET PO SCH ×2 (10:30→22:59)
[2017-02-07] MEDS: FAMOTIDINE 20 MG TABLET PO SCH (10:30)
[2017-02-07] MEDS: DOCUSATE SODIUM 100 MG CAPSULE PO SCH ×2 (10:30→17:13)
[2017-02-07] MEDS: LISINOPRIL 10 MG TABLET PO SCH (10:30)
[2017-02-07] MEDS: VANCOMYCIN HCL 1,250 MG in DEXTROSE 5%-WATER 250 ML IV SCH ×2 (10:31→22:59)
[2017-02-07] MEDS: NORMAL SALINE 10 ML SDV (SCHEDULED) IV SCH ×2 (10:31→22:59)
[2017-02-07] MEDS: NYSTATIN CREAM 15 GM TP SCH ×2 (10:37→17:17)
--- NOTE | 2017-02-07 10:59 | PDOC PROGRESS REPORT ---
Subjective Progress Note for:: 02/07/17 Subjective:: Other than pain on the lower extremity, patient voices no complaints. Denies chest pain or shortness of breath, PND or orthopnea, diarrhea, nausea or vomiting. Physical Exam Vital Signs: Temp Pulse Resp BP Pulse Ox 97.4 F 93 12 161/74 H 97 02/07/17 08:00 02/07/17 08:00 02/07/17 08:00 02/07/17 08:00 02/07/17 09:43 Pulse Oximeter Continuous Start: 02/01/17 21: 08 Freq: RTQ4 Status: Active Document 02/07/17 09:43 TPO (Rec: 02/07/17 09:44 TPO [email or web address]) Pulse Oximetry Assessment Oxygen Saturation (92-100) 97 Oxygen Flow Rate (L/min) 21 Oxygen Delivery Method Room Air Equipment Usage Equipment Standby Continuous SpO2 Machine # [id number] Intake & Output 02/06/17 02/07/17 02/08/17 06:59 06:59 06:59 Intake Total 2410 6585 Output Total 2800 4350 Balance -390 2235 Weight 81.1 kg 89.5 kg General appearance: PRESENT: no acute distress, cooperative Head exam: PRESENT: normocephalic Eye exam: PRESENT: EOMI Mouth exam: PRESENT: moist, neck supple Neck exam: ABSENT: JVD Respiratory exam: PRESENT: clear to auscultation marianna. ABSENT: rhonchi, wheezes Cardiovascular exam: PRESENT: RRR. ABSENT: gallop GI/Abdominal exam: PRESENT: soft. ABSENT: distended, tenderness Extremities exam: PRESENT: other - Below-knee amputation on the right, dressing is clean. ABSENT: pedal edema Neurological exam: PRESENT: alert, awake, oriented to situation Skin exam: PRESENT: dry, warm. ABSENT: cyanosis Results Laboratory Results: 02/07/17 06:25 02/07/17 06:25 02/06/17 02/07/17 02/07/17 13:11 06:25 06:25 WBC 9.8 RBC 3.91 Hgb 10.6 L Hct 31.6 L MCV 81 MCH 27.0 MCHC 33.4 RDW 16.3 H Plt Count 287 Sodium 139.5 Potassium 3.7 Chloride 103 Carbon Dioxide 29 Anion Gap 8 BUN 8 Creatinine 0.64 0.59 Est GFR ( Amer) > 60 > 60 Est GFR (Non-Af Amer) > 60 > 60 Glucose 174 H Calcium 8.3 L 02/01/17 02/01/17 02/01/17 04:28 04:28 21:50 Creatine Kinase 26 L CK-MB (CK-2) 0.63 0.35 Impressions: Lower Extremity CT 01/31/17 22:49 IMPRESSION: Diffuse soft tissue edema and subcutaneous gas. Findings are consistent with infectious process. There is no CT evidence of osteomyelitis but further evaluation with 3 phase bone scanning or MRI is recommended. No drainable fluid collection is identified on this non contrasted study. Guidance Fluoroscopy 02/01/17 00:00 IMPRESSION: SUCCESSFUL PLACEMENT OF A 5 FR DUAL LUMEN 45 CM PICC IN THE left basilic VEIN. Interventional Vascular Procedure 02/01/17 00:00 IMPRESSION: SUCCESSFUL PLACEMENT OF A 5 FR DUAL LUMEN 45 CM PICC IN THE left basilic VEIN. PICC Line Insertion 02/01/17 00:00 IMPRESSION: SUCCESSFUL PLACEMENT OF A 5 FR DUAL LUMEN 45 CM PICC IN THE left basilic VEIN. Transvaginal US 02/02/17 00:00 IMPRESSION: NONDIAGNOSTIC STUDY. Assessment & Plan - Diagnosis (1) Sepsis Qualifiers: Sepsis type: Streptococcus group B Qualified Code(s): A40.1 - Sepsis due to streptococcus, group B Is this a current diagnosis for this admission?: Yes (2) Gas gangrene Is this a current diagnosis for this admission?: Yes (3) Diabetic infection of right foot Is this a current diagnosis for this admission?: Yes (4) Acute blood loss anemia Is this a current diagnosis for this admission?: Yes (5) Depression Qualifiers: Depression Type: unspecified Qualified Code(s): F32.9 - Major depressive disorder, single episode, unspecified Is this a current diagnosis for this admission?: Yes (6) Diabetes 1.5, managed as type 1 Is this a current diagnosis for this admission?: Yes (7) Hypertension Qualifiers: Hypertension type: essential hypertension Qualified Code(s): I10 - Essential (primary) hypertension Is this a current diagnosis for this admission?: Yes - Time Time Spent with patient: 25-34 minutes - Plan Summary Plan Summary: We are going to discontinue the Pepcid. I am going to check ammonia level, TSH , and B12 level. Begin diuretics with hydrochlorothiazide. Continue lisinopril. Awaiting placement. We will continue to follow.
[2017-02-07] MEDS ORDERED: HYDROCHLOROTHIAZIDE 25 MG TABLET PO ONE (11:15)
[2017-02-07] MEDS: OLANZAPINE 5 MG TABLET PO SCH (22:59)
[2017-02-08] MEDS: PIPERACILLIN SODIUM/TAZOBACTAM 4.5 GM in NORMAL SALINE 100 ML IV SCH ×2 (01:23→05:40)
[2017-02-08] MEDS: METFORMIN HCL 500 MG TABLET PO SCH ×2 (10:27→20:06)
[2017-02-08] MEDS: DOCUSATE SODIUM 100 MG CAPSULE PO SCH ×2 (10:27→20:05)
[2017-02-08] MEDS: LAMOTRIGINE 100 MG TABLET PO SCH ×2 (10:27→21:56)
[2017-02-08] MEDS: LISINOPRIL 10 MG TABLET PO SCH (10:27)
[2017-02-08] MEDS: FLUOXETINE HCL 20 MG CAPSULE PO SCH (10:27)
[2017-02-08] MEDS: VANCOMYCIN HCL 1,250 MG in DEXTROSE 5%-WATER 250 ML IV SCH ×2 (10:28→21:56)
[2017-02-08] MEDS: HYDROCHLOROTHIAZIDE 25 MG TABLET PO SCH (10:28)
[2017-02-08] MEDS: NORMAL SALINE 10 ML SDV (AFTER EACH USE) IV PRN (10:28)
[2017-02-08] MEDS: NYSTATIN CREAM 15 GM TP SCH ×2 (11:01→20:07)
[2017-02-08] MEDS: NORMAL SALINE 10 ML SDV (SCHEDULED) IV SCH ×2 (11:15→21:56)
--- NOTE | 2017-02-08 12:19 | PDOC PROGRESS REPORT ---
Subjective Progress Note for:: 02/08/17 Subjective:: Patient is better this morning. Less confusion. Patient reports no pain or discomfort at this time. No diarrhea, nausea or vomiting. Physical Exam Vital Signs: Temp Pulse Resp BP Pulse Ox 98.4 F 87 16 154/63 H 97 02/08/17 08:00 02/08/17 08:00 02/08/17 08:00 02/08/17 08:00 02/08/17 08:00 Pulse Oximeter Continuous Start: 02/01/17 21: 08 Freq: RTQ4 Status: Active Document 02/08/17 04:00 [facility] (Rec: 02/08/17 05:05 [facility] [email or web address]) Pulse Oximetry Assessment Equipment Usage Equipment Standby Continuous SpO2 Machine # 13 Intake & Output 02/07/17 02/08/17 02/09/17 06:59 06:59 06:59 Intake Total 6585 3144 Output Total 4350 850 Balance 2235 2294 Weight 89.5 kg 91.3 kg General appearance: PRESENT: no acute distress, obese Head exam: PRESENT: normocephalic Eye exam: PRESENT: EOMI Mouth exam: PRESENT: moist, neck supple Neck exam: ABSENT: JVD Respiratory exam: PRESENT: clear to auscultation marianna Cardiovascular exam: PRESENT: RRR GI/Abdominal exam: PRESENT: soft. ABSENT: tenderness Extremities exam: PRESENT: other - Lower extremity stump dressing is clean (R) Neurological exam: PRESENT: alert, awake, oriented to situation Skin exam: PRESENT: dry, warm. ABSENT: cyanosis Results Laboratory Results: 02/07/17 06:25 02/07/17 06:25 02/07/17 02/07/17 02/07/17 12:00 12:00 12:00 Ammonia < 8.7 L Vitamin B12 > 1000.0 H TSH 2.23 02/01/17 02/01/17 02/01/17 04:28 04:28 21:50 Creatine Kinase 26 L CK-MB (CK-2) 0.63 0.35 Impressions: Lower Extremity CT 01/31/17 22:49 IMPRESSION: Diffuse soft tissue edema and subcutaneous gas. Findings are consistent with infectious process. There is no CT evidence of osteomyelitis but further evaluation with 3 phase bone scanning or MRI is recommended. No drainable fluid collection is identified on this non contrasted study. Guidance Fluoroscopy 02/01/17 00:00 IMPRESSION: SUCCESSFUL PLACEMENT OF A 5 FR DUAL LUMEN 45 CM PICC IN THE left basilic VEIN. Interventional Vascular Procedure 02/01/17 00:00 IMPRESSION: SUCCESSFUL PLACEMENT OF A 5 FR DUAL LUMEN 45 CM PICC IN THE left basilic VEIN. PICC Line Insertion 02/01/17 00:00 IMPRESSION: SUCCESSFUL PLACEMENT OF A 5 FR DUAL LUMEN 45 CM PICC IN THE left basilic VEIN. Transvaginal US 02/02/17 00:00 IMPRESSION: NONDIAGNOSTIC STUDY. Assessment & Plan - Diagnosis (1) Sepsis Qualifiers: Sepsis type: Streptococcus group B Qualified Code(s): A40.1 - Sepsis due to streptococcus, group B Is this a current diagnosis for this admission?: Yes (2) Gas gangrene Is this a current diagnosis for this admission?: Yes (3) Diabetic infection of right foot Is this a current diagnosis for this admission?: Yes (4) Acute blood loss anemia Is this a current diagnosis for this admission?: Yes (5) Depression Qualifiers: Depression Type: unspecified Qualified Code(s): F32.9 - Major depressive disorder, single episode, unspecified Is this a current diagnosis for this admission?: Yes (6) Diabetes 1.5, managed as type 1 Is this a current diagnosis for this admission?: Yes (7) Hypertension Qualifiers: Hypertension type: essential hypertension Qualified Code(s): I10 - Essential (primary) hypertension Is this a current diagnosis for this admission?: Yes - Time Time Spent with patient: Less than 15 minutes - Plan Summary Plan Summary: Continue current medications and supportive care. Cultures grew Peptostreptococcus and 2 streptococcal species, would recommend to de-escalate antibiotics to oral, like ciprofloxacin oral Augmentin. Continue physical therapy. Awaiting rehabilitation placement.
[2017-02-08] MEDS: OLANZAPINE 5 MG TABLET PO SCH (21:56)
[2017-02-08] MEDS: DEXTROSE 5%-NORMAL SALINE 1,000 ML IV PRN (21:56)
--- NOTE | 2017-02-09 09:47 | PDOC PROGRESS REPORT ---
Subjective Progress Note for:: 02/09/17 Subjective:: Patient voiced no complaints at all. She denies any diarrhea, nausea or vomiting, chills or fever, shortness of breath or chest. Physical Exam Vital Signs: Temp Pulse Resp BP Pulse Ox 98.4 F 81 16 157/68 H 96 02/09/17 08:37 02/09/17 08:37 02/09/17 08:37 02/09/17 08:37 02/09/17 08:37 Pulse Oximeter Continuous Start: 02/01/17 21: 08 Freq: RTQ4 Status: Complete Document 02/08/17 12:00 [facility] (Rec: 02/08/17 14:27 [facility] [email or web address]) Pulse Oximetry Assessment Equipment Usage Equipment Standby Continuous SpO2 Machine # 13 Intake & Output 02/08/17 02/09/17 02/10/17 06:59 06:59 06:59 Intake Total 3144 3650 Output Total 850 Balance 2294 3650 Weight 91.3 kg 90 kg General appearance: PRESENT: no acute distress, cooperative, obese Head exam: PRESENT: normocephalic Eye exam: PRESENT: EOMI Mouth exam: PRESENT: moist, neck supple Neck exam: ABSENT: JVD Respiratory exam: PRESENT: clear to auscultation marianna. ABSENT: rhonchi, wheezes Cardiovascular exam: PRESENT: RRR. ABSENT: gallop GI/Abdominal exam: PRESENT: soft. 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 ABSENT: cyanosis Results Laboratory Results: 02/07/17 06:25 02/07/17 06:25 02/01/17 02/01/17 02/01/17 04:28 04:28 21:50 Creatine Kinase 26 L CK-MB (CK-2) 0.63 0.35 Impressions: Lower Extremity CT 01/31/17 22:49 IMPRESSION: Diffuse soft tissue edema and subcutaneous gas. Findings are consistent with infectious process. There is no CT evidence of osteomyelitis but further evaluation with 3 phase bone scanning or MRI is recommended. No drainable fluid collection is identified on this non contrasted study. Guidance Fluoroscopy 02/01/17 00:00 IMPRESSION: SUCCESSFUL PLACEMENT OF A 5 FR DUAL LUMEN 45 CM PICC IN THE left basilic VEIN. Interventional Vascular Procedure 02/01/17 00:00 IMPRESSION: SUCCESSFUL PLACEMENT OF A 5 FR DUAL LUMEN 45 CM PICC IN THE left basilic VEIN. PICC Line Insertion 02/01/17 00:00 IMPRESSION: SUCCESSFUL PLACEMENT OF A 5 FR DUAL LUMEN 45 CM PICC IN THE left basilic VEIN. Transvaginal US 02/02/17 00:00 IMPRESSION: NONDIAGNOSTIC STUDY. Assessment & Plan - Diagnosis (1) Sepsis Qualifiers: Sepsis type: Streptococcus group B Qualified Code(s): A40.1 - Sepsis due to streptococcus, group B Is this a current diagnosis for this admission?: Yes (2) Gas gangrene Is this a current diagnosis for this admission?: Yes (3) Diabetic infection of right foot Is this a current diagnosis for this admission?: Yes (4) Acute blood loss anemia Is this a current diagnosis for this admission?: Yes (5) Depression Qualifiers: Depression Type: unspecified Qualified Code(s): F32.9 - Major depressive disorder, single episode, unspecified Is this a current diagnosis for this admission?: Yes (6) Diabetes 1.5, managed as type 1 Is this a current diagnosis for this admission?: Yes (7) Hypertension Qualifiers: Hypertension type: essential hypertension Qualified Code(s): I10 - Essential (primary) hypertension Is this a current diagnosis for this admission?: Yes - Time Time Spent with patient: 15-24 minutes - Plan Summary Plan Summary: I have reviewed the patient's medication and reconciled her discharge medications. She has a bed offer for rehabilitation. Intravenous antibiotic can be shifted to oral intake for another week. We will sign off from her case. Please call us as needed.
[2017-02-09] MEDS ORDERED: CIPROFLOXACIN HCL 500 MG TABLET PO SCH (10:00)
[2017-02-09] MEDS: LISINOPRIL 10 MG TABLET PO SCH (10:06)
[2017-02-09] MEDS: FLUOXETINE HCL 20 MG CAPSULE PO SCH (10:06)
[2017-02-09] MEDS: DOCUSATE SODIUM 100 MG CAPSULE PO SCH (10:07)
[2017-02-09] MEDS: METFORMIN HCL 500 MG TABLET PO SCH (10:07)
[2017-02-09] MEDS: NORMAL SALINE 10 ML SDV (SCHEDULED) IV SCH (10:07)
[2017-02-09] MEDS: HYDROCHLOROTHIAZIDE 25 MG TABLET PO SCH (10:07)
[2017-02-09] MEDS: LAMOTRIGINE 100 MG TABLET PO SCH (10:08)
[2017-02-09] MEDS: NYSTATIN CREAM 15 GM TP SCH (10:08)
[2017-02-09 10:46] LABS: CREATININE RESULT 1.66 mg/dL (0.52-1.25)
--- NOTE | 2017-02-09 11:15 | PSYCHOLOGICAL NOTE ---
Psych Note - Psych Note Psych Note: Reviewed Patient chart to complete Capacity evaluation secondary to confusion and altered mental status, as requested by Dr. Campa. However, during review of the chart it appears as though the Patient's mental status improved and cleared with treatment of antibiotics after it was determined her confusion was secondary to sepsis. She has been accepted to a rehabilitation hospital for continued care and treatment and will be transferred accordingly. Thank you for this kind referral and please do not hesitate to contact this office in the future.
--- NOTE | 2017-02-09 12:03 | TRANSFER SUMMARY E ---
Transfer Summary NAME: RACHAEL BARRY : 1940 AGE: 76Y ADMITTED: 02/01/2017 TRANSFERRED: 02/09/2017 DISCHARGE DIAGNOSES: Gas gangrene of the right foot. PROCEDURE PERFORMED DURING HOSPITALIZATION: 1. Excisional debridement of the right foot performed by Dr. Baker on 02/01/2017. 2. Right [id number]-[id number] guillotine amputation performed by Dr. Cesar Calvert. 3. Right [id number] amputation performed by Dr. Jamir Ludwig on 02/06/2017. HOSPITAL COURSE: The patient was initially placed on antibiotics. She underwent the above-mentioned debridement. She was felt to have a non-salvageable foot and she underwent guillotine amputation followed by a formal [id number]-[id number]-[id number] amputation. She did well postoperatively. Her stump looked good with no evidence of active infection. Her cultures did grow out group B beta Streptococcus and Peptostreptococcus species. However, blood cultures were negative. The patient was kept on IV antibiotics during her hospital stay. It was switched over to p.o. Cipro prior to discharge. The patient is now being discharged to the rehab facility in good condition. She is to undergo physical therapy for a BKA stump range of motion and knee brace to keep the stump extended. She is to have compressive dressings applied to the stump daily. She will follow up with Dr. Ludwig in 2 weeks. Please arrange the follow up visit. DISCHARGE MEDICATIONS: 1. Cipro 500 mg p.o. b.i.d. for seven days and then discontinue. 2. Colace one p.o. b.i.d. 3. Fluoxetine 20 mg daily. 4. Hydrochlorothiazide 25 mg p.o. daily. 5. Lamotrigine 100 mg p.o. b.i.d. 6. Lisinopril 20 mg p.o. daily. 7. Metformin 500 mg p.o. b.i.d. 8. Nystatin applied b.i.d. to affected areas. 9. Olanzapine 5 mg p.o. every bedtime. 10. Acetaminophen 325 mg one p.o. q. four p.r.n. pain. 11. Lovenox 40 mg subcutaneously q. morning. DIET: She is to follow a diabetic diet. DICTATING PHYSICIAN: ZEINAB RANDLE M.D. [id number] PHY#: [id number] ID: [id number] JOB#: [id number] ACCT: [id number] cc:ZEINAB RANDLE M.D. >
[2017-02-09 16:27] VITALS: BP 140/52
== END 2017-02-09 17:30 | DRG 853 ==
LOC: ER 16:15 → EH 02-01 01:19 → UNDOADMIN 02-01 01:19 → 4S 02-01 03:44 → EH 02-01 04:07
PROVIDERS: ADMIT Surgery; ATTEND Surgery
PROC: 0HBMXZZ Excision of Right Foot Skin, External Approach (ICD-10-PCS; 2017-02-01)
PROC: 02HV33Z Insertion of Infusion Device into Superior Vena Cava, Percutaneous Approach (ICD-10-PCS; 2017-02-01)
PROC: B518ZZA Fluoroscopy of Superior Vena Cava, Guidance (ICD-10-PCS; 2017-02-01)
PROC: B548ZZA Ultrasonography of Superior Vena Cava, Guidance (ICD-10-PCS; 2017-02-01)
PROC: 0Y6H0Z3 Detachment at Right Lower Leg, Low, Open Approach (ICD-10-PCS; principal; 2017-02-01 14:10)
PROC: 0YQHXZZ Repair Right Lower Leg, External Approach (ICD-10-PCS; 2017-02-06)
DX: A40.1 Sepsis due to streptococcus, group B (principal); A48.0 Gas gangrene; E10.52 Type 1 diabetes mellitus with diabetic peripheral angiopathy with gangrene; D62 Acute posthemorrhagic anemia; I10 Essential (primary) hypertension; F41.9 Anxiety disorder, unspecified; F32.9 Major depressive disorder, single episode, unspecified; N95.0 Postmenopausal bleeding; T45.515A Adverse effect of anticoagulants, initial encounter; Z91.14 Patient's other noncompliance with medication regimen; Z88.3 Allergy status to other anti-infective agents; Z88.6 Allergy status to analgesic agent; Z79.4 Long term (current) use of insulin; Z82.49 Family history of ischemic heart disease and other diseases of the circulatory system; Z83.3 Family history of diabetes mellitus
CPT/HCPCS: 01470; 01480; 01482; 36415; 36569; 76830; 76937; 77001; 80048; 80053; 80202; 81001; 82140; 82550; 82553; 82565; 82607; 82962; 83036; 84443; 85025; 85027; 85610; 87040; 87070; 87075; 87077; 87086; 87205; 88305; 88307; 88311; 94762; 94799; 96365; 99284; G8978-GP; G8979-GP; J0131; J0330; J0360; J1100; J1170; J1642; J1644; J1815; J2060; J2250; J2270; J2405; J2543; J2704; J2795; J3010; J3370; J3490; J7060; L1830; S0028

== ENCOUNTER 2019-09-25 07:04 | Day surgery (SDC) | payer MEDICARE, OTHER ==
[~2019-09-25 07:04] MED LIST: FENTANYL CITRATE INJ/PF 100 MCG/2 ML AMPUL ONE; KETOROLAC TROMETHAMINE 0.45% 4 DROP/0.4 ML DROPERETTE OD PRN; MIDAZOLAM 2 MG/2 ML INJ ONE; ONDANSETRON HCL INJ/PF 4 MG/2 ML SDV ONE
[2019-09-25] MEDS: TROPICAMIDE 1% OPH SOLN 15 ML OD PRN ×3 (07:50→08:10)
[2019-09-25] MEDS: TETRACAINE HCL 0.5% OPH SOLN 4 ML OD PRN ×3 (07:50→08:19)
[2019-09-25] MEDS: BESIFLOXACIN HCL 0.6% OPH SUSP 5 ML BOTTLE OD PRN ×4 (07:50→08:37)
[2019-09-25] MEDS: CYCLOPENTOLATE 0.2%/PHENYLEPHRINE 1% OPH SOLN 2 ML OD PRN ×3 (07:50→08:10)
[2019-09-25] MEDS: LIDOCAINE 1% INJ-PF (10 MG/ML) 30 ML SDV ONE ×2 (08:26)
[2019-09-25] MEDS: CHONDR SU A NA/HYALUR INTRAOC KIT (SURGICARE) ONE ×2 (08:26)
[2019-09-25] MEDS: EPINEPHRINE INJ/PF 1 MG/1 ML AMPULE ONE ×2 (08:26)
[2019-09-25] MEDS: TOBRAMYCIN SULFATE/DEXAMETH OPH OINTMENT 3.5 GM ONE ×2 (08:37)
[2019-09-25] MEDS: DORZOLAMIDE HCL 2%/TIMOLOL MALEAT 0.5% OPH SOLN 10 ML OD PRN ×2 (08:37)
[2019-09-25] MEDS ORDERED: MIDAZOLAM 2 MG/2 ML INJ ONE (08:45)
== END 2019-09-25 09:12 | disposition home or self-care (01) ==
LOC: SC 07:04
PROVIDERS: ATTEND Ophthalmology
DX: H25.11 Age-related nuclear cataract, right eye (principal); E11.9 Type 2 diabetes mellitus without complications; I10 Essential (primary) hypertension
CPT/HCPCS: 66984; 82962; V2632; J2250; J3490 ×3; A9270 ×2; J0171; J3010; J2405; 142

== ENCOUNTER 2019-10-16 06:26 | Day surgery (SDC) | payer MEDICARE, OTHER ==
[~2019-10-16 06:26] MED LIST changes: -FENTANYL CITRATE INJ/PF 100 MCG/2 ML AMPUL ONE; -KETOROLAC TROMETHAMINE 0.45% 4 DROP/0.4 ML DROPERETTE OD PRN; +KETOROLAC TROMETHAMINE 0.45% 4 DROP/0.4 ML DROPERETTE OS PRN; -MIDAZOLAM 2 MG/2 ML INJ ONE; -ONDANSETRON HCL INJ/PF 4 MG/2 ML SDV ONE
[2019-10-16] MEDS ORDERED: MIDAZOLAM 2 MG/2 ML INJ ONE ×2 (06:38→07:53)
[2019-10-16] MEDS ORDERED: FENTANYL CITRATE INJ/PF 100 MCG/2 ML AMPUL ONE (06:38)
[2019-10-16] MEDS: TETRACAINE HCL 0.5% OPH SOLN 4 ML OS PRN ×4 (06:53→07:46)
[2019-10-16] MEDS: TROPICAMIDE 1% OPH SOLN 15 ML OS PRN ×3 (06:53→07:21)
[2019-10-16] MEDS: CYCLOPENTOLATE 0.2%/PHENYLEPHRINE 1% OPH SOLN 2 ML OS PRN ×3 (06:54→07:21)
[2019-10-16] MEDS: BESIFLOXACIN HCL 0.6% OPH SUSP 5 ML BOTTLE OS PRN ×4 (06:54→08:07)
[2019-10-16] MEDS ORDERED: LIDOCAINE 1% INJ-PF (10 MG/ML) 30 ML SDV ONE (07:09)
[2019-10-16] MEDS: LIDOCAINE 1%/PHENYLEPHRINE 1.5% 1 ML VIAL ONE ×2 (07:56)
[2019-10-16] MEDS: EPINEPHRINE INJ/PF 1 MG/1 ML AMPULE ONE ×2 (07:56)
[2019-10-16] MEDS: CHONDR SU A NA/HYALUR INTRAOC KIT (SURGICARE) ONE ×2 (07:56)
[2019-10-16] MEDS: TOBRAMYCIN SULFATE/DEXAMETH OPH OINTMENT 3.5 GM ONE ×2 (08:07)
[2019-10-16] MEDS: DORZOLAMIDE HCL 2%/TIMOLOL MALEAT 0.5% OPH SOLN 10 ML OS PRN ×2 (08:07)
== END 2019-10-16 08:39 | disposition home or self-care (01) ==
LOC: SC 06:26
PROVIDERS: ATTEND Ophthalmology
DX: H25.12 Age-related nuclear cataract, left eye (principal); Z79.82 Long term (current) use of aspirin; E11.9 Type 2 diabetes mellitus without complications; I10 Essential (primary) hypertension; Z98.41 Cataract extraction status, right eye; Z79.84 Long term (current) use of oral hypoglycemic drugs
CPT/HCPCS: 66984; 82962; V2632; J2250; J3490 ×2; A9270 ×2; J0171; J3010; J2370; 142